=== PATIENT | male | born 1940 | race Two or more races ===

== ENCOUNTER 2017-01-26 17:52 | Inpatient (IN) | payer OTHER ==
[2017-01-26] MEDS ORDERED: SODIUM CHLORIDE 1,000 ML IV STA (18:09)
--- NOTE | 2017-01-26 18:10 | PDOC ---
History of Present Illness - General Chief Complaint: Syncope/Near Syncope Stated Complaint: WEAKNESS,FALL,SYNCOPE Time Seen by Provider: 01/26/17 18:06 - History of Present Illness Initial Comments: 01/26/17 18:23 76 y/o M with a significant PMHx of HTN, HLD, DM, CVA presents to the ED with family after a syncopal episode today. Per granddaughter, this afternoon she found the pt clutching onto a chair and breathing heavily. He then became unresponsive and fell to the floor. Granddaughter states that the patient lost consciousness for a few seconds before waking. Pt's daughter was called at this time and came home from work to check on the patient, who seemed dazed and disoriented. Daughter tried to help the patient sit on a chair, but he missed and fell again onto his buttocks. He did not lose consciousness at this time. On arrival to ER, patient has no recollection of syncopal episode or events leading up to it. He states that he feels well, but reports that he had some indigestion earlier today. He reports no chest pain, SOB, dizziness, headaches, nausea, vomiting, diarrhea. Denies numbness, tingling, or weakness in his extremities. Daughter now states that pt appears to have returned to baseline mentation. Denies ever seeing any facial droop or slurred speech today. Past History - Past Medical History Allergies/Adverse Reactions: Allergies Allergy/AdvReac Type Severity Reaction Status Date / Time No Known Allergies Allergy Verified 01/26/17 17:54 Home Medications: Ambulatory Orders Donepezil HCl [Aricept] 10 mg PO HS 02/06/16 Metformin HCl [Glucophage -] 1,000 mg PO BID 02/06/16 Simvastatin [Zocor -] 40 mg PO HS 02/06/16 Finasteride 5 mg PO DAILY 01/26/17 Omeprazole 20 mg PO DAILY 01/26/17 Tamsulosin HCl [Flomax -] 0.4 mg PO DAILY 01/26/17 Atorvastatin Ca [Lipitor] 20 mg PO HS tablet 01/28/17 Dipyridamole [Persantine -] 75 mg PO DAILY tablet 01/28/17 Donepezil HCl [Aricept -] 10 mg PO HS tablet 01/28/17 Finasteride [Proscar -] 5 mg PO DAILY tablet 01/28/17 Metformin HCl [Glucophage -] 500 mg PO BID@0700,1630 tablet 01/28/17 CVA: Yes Dementia: Yes Diabetes: Yes HTN: Yes Hypercholesterolemia: Yes - Suicide/Smoking/Psychosocial Hx Smoking History: Never smoked Have you smoked in the past 12 months: No Number of Cigarettes Smoked Daily: 0 Hx Alcohol Use: No Drug/Substance Use Hx: No Substance Use Type: None Hx Substance Use Treatment: No Review of Systems - Review of Systems Comments:: 01/26/17 18:25 "GENERAL/CONSTITUTIONAL: No fever or chills. No weakness. HEAD, EYES, EARS, NOSE AND THROAT: No change in vision. No ear pain or discharge. No sore throat. CARDIOVASCULAR: No chest pain or shortness of breath. RESPIRATORY: No cough, wheezing, or hemoptysis. GASTROINTESTINAL: (+) abdominal pain. No nausea, vomiting, diarrhea or constipation. GENITOURINARY: No dysuria, frequency, or change in urination. MUSCULOSKELETAL: No joint or muscle swelling or pain. No neck or back pain. SKIN: No rash NEUROLOGIC: (+) syncope, confusion, dizziness, LOC. No headache. ENDOCRINE: No increased thirst. No abnormal weight change. HEMATOLOGIC/LYMPHATIC: No anemia, easy bleeding, or history of blood clots. ALLERGIC/IMMUNOLOGIC: No hives or skin allergy." *Physical Exam - Vital Signs Last Vital Signs Temp Pulse Resp BP Pulse Ox 98.0 F 69 18 116/64 98 01/28/17 06:00 01/28/17 06:15 01/28/17 08:21 01/28/17 06:15 01/28/17 08:21 - Physical Exam Comments: 01/26/17 18:27 "GENERAL: Awake, alert, and fully oriented, in no acute distress HEAD: No signs of trauma EYES: PERRLA, EOMI, sclera anicteric, conjunctiva clear ENT: Auricles normal inspection, hearing grossly normal, nares patent, oropharynx clear without exudates. Moist mucosa NECK: Nontender, no stepoffs, Normal ROM, supple, no lymphadenopathy, JVD, or masses LUNGS: Breath sounds equal, clear to auscultation bilaterally. No wheezes, and no crackles HEART: Regular rate and rhythm, normal S1 and S2, no murmurs, rubs or gallops ABDOMEN: Mild periumbilical tenderness without rebound/guarding, hyperactive bowel sounds. No masses EXTREMITIES: Normal range of motion, no edema. No clubbing or cyanosis. No cords, erythema, or tenderness NEUROLOGICAL: Cranial nerves II through XII intact. 5/5 strength and sensation in all extremities, Normal speech, normal gait, normal cerebellar function tests , normal visual peguero SKIN: Warm, Dry, normal turgor, no rashes or lesions noted. " Heart Score/ECG Review - History History: Slightly suspicious - Electrocardiogram EKG: Normal - Age Age: >/= 65 - Risk Factors Risk Factors Heart Score: Yes Hx Hypercholesterolemia, Yes Hx Hypertension, Yes Hx Diabetes Based on the list above the patient has:: >/=3 risk factors or Hx atherosclerotic disease - Troponin Troponin: </= normal limit - Score Heart Score - Total: 4 - ECG Impressions Comment:: 01/26/17 18:31 NSR, no MICHAEL/STDs, no TWIs, intervals wnl, axis wnl ED Treatment Course - LABORATORY CBC & Chemistry Diagram: 01/28/17 07:00 01/28/17 07:00 - ADDITIONAL ORDERS Additional order review: 01/26/17 18:05 RBC 4.31 MCV 79.8 L MCHC 33.2 RDW 12.6 MPV 7.5 Neutrophils % 68.4 Lymphocytes % 26.5 Monocytes % 4.9 Eosinophils % 0.1 D Basophils % 0.1 - RADIOLOGY Radiology Studies Ordered: Category Date Time Status HEAD CT WITHOUT CONTRAST [CT] Stat CT Scan 01/26/17 18:07 Completed CHEST X-RAY PORTABLE* [RAD] Stat Radiology 01/26/17 18:06 Completed - Medications Given in the ED: ED Medications Discontinued Medications Generic Name Dose Route Start Last Admin Trade Name Freq PRN Reason Stop Dose Admin Atorvastatin Calcium 20 mg 01/27/17 22:00 01/27/17 21:53 Lipitor - PO 20 mg HS EDWIN Administration Dipyridamole 75 mg 01/27/17 10:00 01/28/17 10:50 Persantine - PO 75 mg DAILY EDWIN Administration Donepezil HCl 10 mg 01/27/17 22:00 01/27/17 21:53 Aricept - PO 10 mg HS EDWIN Administration Finasteride 5 mg 01/27/17 10:00 01/28/17 10:50 Proscar - PO 5 mg DAILY EDWIN Administration Heparin Sodium (Porcine) 5,000 unit 01/27/17 06:00 01/28/17 06:48 Heparin - SQ 5,000 unit TID EDWIN Administration Sodium Chloride 1,000 mls @ 1,000 mls/hr 01/26/17 18:09 01/26/17 18:05 Normal Saline - IV 01/26/17 19:08 1,000 mls/hr ASDIR STA Administration Ceftriaxone Sodium 1 gm/ 50 mls @ 100 mls/hr 01/26/17 21:45 01/26/17 22:10 Dextrose IVPB 01/26/17 22:14 100 mls/hr ONCE ONE Administration Sodium Chloride 1,000 mls @ 75 mls/hr 01/26/17 22:45 01/27/17 06:44 Normal Saline - IV 75 mls/hr ASDIR EDWIN Administration Sodium Chloride 1,000 mls @ 100 mls/hr 01/27/17 09:45 01/27/17 09:45 Normal Saline - IV 100 mls/hr ASDIR EDWIN Administration Ceftriaxone Sodium 1 gm/ 50 mls @ 100 mls/hr 01/27/17 10:00 01/27/17 10:00 Dextrose IVPB 100 mls/hr DAILY EDWIN Administration Pantoprazole Sodium 20 mg 01/27/17 10:00 01/28/17 10:50 Protonix - PO 20 mg DAILY EDWIN Administration Medical Decision Making - Medical Decision Making 01/26/17 18:10 76 M with h/o DM, HTN, HLD, CVA presents to ER with syncopal episode. Possibly orthostatic given abnormal orthostatic vitals in ER (systolic dropped from 100 lying down to 60 standing). However, will need to evaluate for cardiac syncope as well given report of dyspnea witnessed by granddaughter prior to syncopal event. ACS unlikely given non-ischemic EKG. PE is also less likely as pt adamantly denies CP/SOB at this time and is not hypoxic or tachycardic. Will evaluate for infectious process with CXR and UA. Pt also with complaint of abdominal discomfort with some periumbilical tenderness. Will r/o acute abdominal process with CTAP. - Labs, trop - CXR, UA - CTH for fall while on aspirin - CT abd/pelvis - IVF for orthostatic hypotension - Likely admit to tele for syncope 01/26/17 19:00 Pt signed out to Dr. Scales at 7PM, pending bloodwork, urine, X-ray, and CT scans. Case discussed in detail with oncoming Emergency Physician including history, physical exam and ancillary studies. Oncoming Emergency Physician has assumed care for the patient and will complete the evaluation and treatment. Patient is aware of the plan. *DC/Admit/Observation/Transfer Diagnosis at time of Disposition: Syncope Pneumonia Qualifiers: Pneumonia type: due to unspecified organism Laterality: left Lung location: upper lobe of lung Qualified Code(s): J18.1 - Lobar pneumonia, unspecified organism - Discharge Dispostion Disposition: HOME Condition at time of disposition: Good - Attestations Physician Attestion: 01/29/17 09:30 I, Dr. Lai Crook MD, attest that this document has been prepared under my direction and personally reviewed by me in its entirety. I further attest, that it accurately reflects all work, treatment, procedures and medical decision -making performed by me.
[2017-01-26 18:51] LABS: BASOPHIL 0.1 % (0-2.0); EOSINOPHIL 0.1 % (0-4.5); MCH 26.5 pg (25.7-33.7); MCHC 33.2 g/dl (32.0-35.9); MEAN CELL VOLUME 79.8 fl (80-96); MEAN PLT VOLUME 7.5 fl (7.5-11.1); NEUTROPHILS 68.4 % (42.8-82.8); PLATELET COUNT 234 K/MM3 (134-434); RDW 12.6 % (11.9-15.9); WHITE BLOOD COUNT 4.8 K/mm3 (4.0-10.8)
[2017-01-26 18:54] LABS: ACTIVATED PTT 27.6 SECONDS (24.0-38.9)
[2017-01-26 18:57] LABS: MAGNESIUM 1.8 mg/dL (1.8-2.4)
[2017-01-26 18:59] LABS: INR 1.06 (0.82-1.09); PROTHROMBIN TIME (PATIENT) 11.9 SEC (10.2-13.0)
[2017-01-26 18:59] LABS: ALBUMIN 4.2 g/dl (3.5-5.0); ALK PHOS 40 U/L (32-92); ANION GAP 8 (8-16); BILIRUBIN,TOTAL 0.8 mg/dl (0.2-1.0); CALCIUM 8.9 mg/dl (8.4-10.2); CO2 19 mmol/L (22-28); CPK 92 IU/L (39-308); CREATININE 2.1 mg/dl (0.6-1.3); GLUCOSE,RANDOM 122 mg/dl (74-106); PHOSPHOROUS 4.4 mg/dl (2.5-4.6); SGOT/AST 21 U/L (10-42); SGPT/ALT 11 U/L (10-40); TOT PROT 7.3 g/dl (6.4-8.3)
[2017-01-26 19:07] LABS: TROPONIN I (DFP) < 0.03 ng/ml (0.03-0.50)
--- NOTE | 2017-01-26 19:12 | PDOC ---
*Physical Exam - Vital Signs Last Vital Signs Temp Pulse Resp BP Pulse Ox 97.5 F L 79 16 102/57 100 01/26/17 17:53 01/26/17 18:38 01/26/17 18:38 01/26/17 18:38 01/26/17 18:38 ED Treatment Course - LABORATORY CBC & Chemistry Diagram: 01/26/17 18:05 01/26/17 18:15 - ADDITIONAL ORDERS Additional order review: Laboratory Results 01/26/17 01/26/17 01/26/17 18:15 18:05 18:05 PT with INR 11.9 INR 1.06 PTT (Actin FS) 27.6 Sodium 136 Potassium 5.5 H Chloride 109 H Carbon Dioxide 19 L D Anion Gap 8 BUN 33 H D Creatinine 2.1 H D Creat Clearance w eGFR 30.70 Random Glucose 122 H Calcium 8.9 Phosphorus 4.4 D Magnesium 1.8 Total Bilirubin 0.8 D AST 21 D ALT 11 D Alkaline Phosphatase 40 D Creatine Kinase 92 Troponin I < 0.03 L Total Protein 7.3 Albumin 4.2 D Lipase 67 H 01/26/17 18:05 RBC 4.31 MCV 79.8 L MCHC 33.2 RDW 12.6 MPV 7.5 Neutrophils % 68.4 Lymphocytes % 26.5 Monocytes % 4.9 Eosinophils % 0.1 D Basophils % 0.1 - Medications Given in the ED: ED Medications Discontinued Medications Generic Name Dose Route Start Last Admin Trade Name Freq PRN Reason Stop Dose Admin Sodium Chloride 1,000 mls @ 1,000 mls/hr 01/26/17 18:09 01/26/17 18:05 Normal Saline - IV 01/26/17 19:08 1,000 mls/hr ASDIR STA Administration Progress Note - Progress Note Progress Note: Care of this patient was transferred to id from Dr. crum at 1900 hrs. Patient had a syncopal event prior to coming in and is orthostatic here in the emergency room. Patient has a workup pending and is receiving IV fluids. Patient will be admitted to an inpatient bed for syncope once his workup is complete. 19:20 On review of the blood work is back so far patient does not have a white count or left shift he has some mild anemia. Patient has some hyperkalemia with potassium of 5.5 as well as some renal insufficiency with a creatinine of 2.1. Patient also has an elevated lipase. On reevaluation and reexamination patient does have some mild lower abdominal pain on deep palpation, there is no pulsatile mass on palpation. Patient has a CT of his head and abdomen pending. CT of the head showed no acute pathology CT abdomen and pelvis no acute pathology Chest x-ray shows a patchy left upper lobe infiltrate Patient given ceftriaxone and will be admitted to a inpatient bed *DC/Admit/Observation/Transfer Diagnosis at time of Disposition: Syncope Pneumonia Qualifiers: Pneumonia type: due to unspecified organism Laterality: left Lung location: upper lobe of lung Qualified Code(s): J18.1 - Lobar pneumonia, unspecified organism; J18.1 - Lobar pneumonia, unspecified organism; J18.1 - Lobar pneumonia , unspecified organism - Discharge Dispostion Condition at time of disposition: Fair Admit: Yes
[2017-01-26 20:02] LABS: URINE APPEARANCE Clear; URINE BILIRUBIN Negative (NEGATIVE); URINE GLUCOSE (UA) Negative (NEGATIVE); URINE KETONE Trace (NEGATIVE); URINE LEUK ESTERASE Negative (NEGATIVE); URINE NITRITE Negative (NEGATIVE); URINE UROBILINOGEN 0.2 (0.2-1.0)
[2017-01-26 20:03] LABS: URINE BLOOD 3+ (NEGATIVE); URINE COLOR YELLOW; URINE PROTEIN 2+ (NEGATIVE)
[2017-01-26 21:23] LABS: URINE HYALINE CAST 0-1 /lpf; URINE RBC 50-80 /hpf (0-3)
[2017-01-26] MEDS ORDERED: CEFTRIAXONE 1 GM in DEXTROSE 5%-WATER - 50 ML IVPB ONE (21:45)
[2017-01-26] MEDS ORDERED: cefTRIAXone SODIUM 1 GM VIAL ONE (22:06)
[2017-01-26] MEDS ORDERED: SODIUM CHLORIDE 1,000 ML IV SCH (22:45)
--- NOTE | 2017-01-26 23:56 | CONSULT ---
Consultation: REQUESTING PROVIDER: CONSULT REQUEST: We have been asked to medically evaluate this patient for ( specify). HISTORY OF PRESENT ILLNESS: REVIEW OF SYSTEMS: CONSTITUTIONAL: Absent: fever, chills, diaphoresis, generalized weakness, malaise, loss of appetite, weight change HEENT: Absent: rhinorrhea, nasal congestion, throat pain, throat swelling, difficulty swallowing, mouth swelling, ear pain, eye pain, visual changes CARDIOVASCULAR: Absent: chest pain, syncope, palpitations, irregular heart rate, lightheadedness , peripheral edema RESPIRATORY: Absent: cough, shortness of breath, dyspnea with exertion, orthopnea, wheezing, stridor, hemoptysis GASTROINTESTINAL: Absent: abdominal pain, abdominal distension, nausea, vomiting, diarrhea, constipation, melena, hematochezia GENITOURINARY: Absent: dysuria, frequency, urgency, hesitancy, hematuria, flank pain, genital pain MUSCULOSKELETAL: Absent: myalgia, arthralgia, joint swelling, back pain, neck pain SKIN: Absent: rash, itching, pallor HEMATOLOGIC/IMMUNOLOGIC: Absent: easy bleeding, easy bruising, lymphadenopathy, frequent infections ENDOCRINE: Absent: unexplained weight gain, unexplained weight loss, heat intolerance, cold intolerance NEUROLOGIC: Absent: headache, focal weakness or paresthesias, dizziness, unsteady gait, seizure, mental status changes, bladder or bowel incontinence PSYCHIATRIC: Absent: anxiety, depression, suicidal or homicidal ideation, hallucinations. PHYSICAL EXAMINATION GENERAL: Awake, alert, and fully oriented, in no acute distress. HEAD: Normal with no signs of trauma. EYES: Pupils equal, round and reactive to light, extraocular movements intact, sclera anicteric, conjunctiva clear. No lid lag. EARS, NOSE, THROAT: Ears normal, nares patent, oropharynx clear without exudates. Moist mucous membranes. NECK: Normal range of motion, supple without lymphadenopathy, JVD, or masses. LUNGS: Breath sounds equal, clear to auscultation bilaterally. No wheezes, and no crackles. No accessory muscle use. HEART: Regular rate and rhythm, normal S1 and S2 without murmur, rub or gallop. ABDOMEN: Soft, nontender, not distended, normoactive bowel sounds, no guarding, no rebound, no masses. No hepatomegaly or splenomegaly. MUSCULOSKELETAL: Normal range of motion at all joints. No bony deformities or tenderness. No CVA tenderness. UPPER EXTREMITIES: 2+ pulses, warm, well-perfused. No cyanosis. No clubbing. Cap refill <2 seconds. No peripheral edema. LOWER EXTREMITIES: 2+ pulses, warm, well-perfused. No calf tenderness. No peripheral edema. NEUROLOGICAL: Cranial nerves II-XII intact. Normal speech. Normal gait. PSYCHIATRIC: Cooperative. Good eye contact. Appropriate mood and affect. SKIN: Warm, dry, normal turgor, no rashes or lesions noted. Active Medications Generic Name Dose Route Start Last Admin Trade Name Freq PRN Reason Stop Dose Admin Heparin Sodium (Porcine) 5,000 unit 01/27/17 06:00 Heparin - SQ TID EDWIN Sodium Chloride 1,000 mls @ 75 mls/hr 01/26/17 22:45 Normal Saline - IV ASDIR [facility] ASSESSMENT/PLAN: Dispo: We will continue to follow the patient. Thank you for this consultative opportunity.
[2017-01-27 00:09] VITALS: BMI 22.4
[2017-01-27] MEDS ORDERED: ACETAMINOPHEN 325 MG TABLET (FP) PO PRN (01:07)
--- NOTE | 2017-01-27 01:14 | HP ---
Late entry: pt evaluated 01/26/17 @ 2330 CHIEF COMPLAINT: syncope PCP: Clare Fragoso, as per ED, covering physician requested symphony admit HISTORY OF PRESENT ILLNESS: This is a 76 a year old female with a significant past medical history of HTN, HLD, DM, CVA who presented s/p syncope. Per granddaughter, this afternoon she found the pt clutching onto a chair and breathing heavily. He then became unresponsive and fell to the floor. Granddaughter states that the patient lost consciousness for a few seconds before waking. Pt's daughter was called at this time and came home from work to check on the patient, who seemed dazed and disoriented. Daughter tried to help the patient sit on a chair, but he missed and fell again onto his buttocks. He did not lose consciousness that time. also reports pt has not been feeling great for the past 1-2 weeks with decreased po intake. Upon exam, pt resting quietly, no distress. Denies c/o pain anywhere. ER course was notable for: (1) orthostatic vitals (2) CXR with CLARICE infiltrate (3) CT head unremarkable Recent Travel: pt denies PAST MEDICAL HISTORY: HTN HLD DM CVA BPH PAST SURGICAL HISTORY: Left ear surgery 12 years ago prostate biopsy 2 weeks ago Social History: Smoking: pt denies Alcohol: pt denies Drugs: pt denies Family History: father age 74, no known medical problems mother , h/o DM, HTN Allergies No Known Allergies Allergy (Verified 01/26/17 17:54) HOME MEDICATIONS: 3 Medication Instructions Recorded Dipyridamole [Persantine -] 75 mg PO DAILY 02/06/16 Donepezil HCl [Aricept] 10 mg PO HS 02/06/16 Enalapril Maleate [Vasotec -] 10 mg PO DAILY 02/06/16 Glipizide [Glucotrol -] 5 mg PO DAILY 02/06/16 Metformin HCl [Glucophage -] 1,000 mg PO BID 02/06/16 Simvastatin [Zocor -] 40 mg PO HS 02/06/16 Acetaminophen [Tylenol .Regular 650 mg PO Q6H PRN #0 tablet 02/15/16 Strength -] Finasteride 5 mg PO DAILY 01/26/17 Omeprazole 20 mg PO DAILY 01/26/17 Tamsulosin HCl [Flomax] 0.4 mg PO DAILY 01/26/17 Triamcinolone 0.1% Cream 1 applic TP BID 01/26/17 [Aristocort] REVIEW OF SYSTEMS CONSTITUTIONAL: Absent: fever, chills, diaphoresis, generalized weakness, malaise, loss of appetite, weight change HEENT: Absent: rhinorrhea, nasal congestion, throat pain, throat swelling, difficulty swallowing, mouth swelling, ear pain, eye pain, visual changes CARDIOVASCULAR: Present: syncope Absent: chest pain, palpitations, irregular heart rate, lightheadedness, peripheral edema RESPIRATORY: Absent: cough, shortness of breath, dyspnea with exertion, orthopnea, wheezing, stridor, hemoptysis GASTROINTESTINAL: Absent: abdominal pain, abdominal distension, nausea, vomiting, diarrhea, constipation, melena, hematochezia GENITOURINARY: Absent: dysuria, frequency, urgency, hesitancy, hematuria, flank pain, genital pain MUSCULOSKELETAL: Absent: myalgia, arthralgia, joint swelling, back pain, neck pain SKIN: Absent: rash, itching, pallor HEMATOLOGIC/IMMUNOLOGIC: Absent: easy bleeding, easy bruising, lymphadenopathy, frequent infections ENDOCRINE: Absent: unexplained weight gain, unexplained weight loss, heat intolerance, cold intolerance NEUROLOGIC: Absent: headache, focal weakness or paresthesias, dizziness, unsteady gait, seizure, mental status changes, bladder or bowel incontinence PSYCHIATRIC: Absent: anxiety, depression, suicidal or homicidal ideation, hallucinations. PHYSICAL EXAMINATION Vital Signs - 24 hr 3 01/26/17 01/26/17 01/26/17 17:53 18:00 18:03 Temperature 97.5 F L Pulse Rate 86 Pulse Rate [ 105 H 101 H Left Radial] Respiratory 16 15 15 Rate Blood Pressure 109/57 Blood Pressure 65/34 87/46 [Right Arm] standing sitting O2 Sat by Pulse 97 99 99 Oximetry (%) 3 01/26/17 01/26/17 01/26/17 18:15 18:38 19:15 Temperature Pulse Rate Pulse Rate [ 82 79 77 Left Radial] Respiratory 15 16 15 Rate Blood Pressure Blood Pressure 102/59 102/57 115/66 [Right Arm] supine O2 Sat by Pulse 99 100 98 Oximetry (%) 3 01/26/17 01/26/17 01/27/17 20:43 21:00 00:05 Temperature 99.5 F Pulse Rate 74 Pulse Rate [ 79 69 Left Radial] Respiratory 15 18 Rate Blood Pressure 105/56 Blood Pressure 119/65 84/56 [Right Arm] standing O2 Sat by Pulse 100 98 97 Oximetry (%) GENERAL: Awake, alert, and fully oriented, in no acute distress. HEAD: Normal with no signs of trauma. EYES: Pupils equal, round and reactive to light, extraocular movements intact, sclera anicteric, conjunctiva clear. No lid lag. EARS, NOSE, THROAT: Ears normal, nares patent, oropharynx clear without exudates. Moist mucous membranes. NECK: Normal range of motion, supple without lymphadenopathy, JVD, or masses. LUNGS: Breath sounds equal, clear to auscultation bilaterally. No wheezes, and no crackles. No accessory muscle use. HEART: Regular rate and rhythm, normal S1 and S2 without murmur, rub or gallop. ABDOMEN: Soft, nontender, not distended, normoactive bowel sounds, no guarding, no rebound, no masses. No hepatomegaly or splenomegaly. MUSCULOSKELETAL: Normal range of motion at all joints. No bony deformities or tenderness. No CVA tenderness. UPPER EXTREMITIES: 2+ pulses, warm, well-perfused. No cyanosis. No clubbing. No peripheral edema. LOWER EXTREMITIES: 2+ pulses, warm, well-perfused. No calf tenderness. No peripheral edema. NEUROLOGICAL: Cranial nerves II-XII intact. Normal speech. Normal gait. PSYCHIATRIC: Cooperative. Good eye contact. Appropriate mood and affect. SKIN: Warm, dry, normal turgor, no rashes or lesions noted, normal capillary refill. Laboratory Results - last 24 hr 3 01/26/17 01/26/17 01/26/17 18:05 18:05 18:05 WBC 4.8 RBC 4.31 Hgb 11.4 L Hct 34.4 L MCV 79.8 L MCH 26.5 MCHC 33.2 RDW 12.6 Plt Count 234 MPV 7.5 Neutrophils % 68.4 Lymphocytes % 26.5 Monocytes % 4.9 Eosinophils % 0.1 D Basophils % 0.1 PT with INR 11.9 INR 1.06 PTT (Actin FS) 27.6 Sodium Potassium Chloride Carbon Dioxide Anion Gap BUN Creatinine Creat Clearance w eGFR Random Glucose Lactic Acid Calcium Phosphorus Magnesium 1.8 Total Bilirubin AST ALT Alkaline Phosphatase Creatine Kinase Troponin I B-Natriuretic Peptide 224.25 Total Protein Albumin Lipase Urine Color Urine Appearance Urine pH Ur Specific Sargent Urine Protein Urine Glucose (UA) Urine Ketones Urine Blood Urine Nitrite Urine Bilirubin Urine Urobilinogen Ur Leukocyte Esterase Urine RBC Urine WBC Ur Epithelial Cells Urine Casts Hyaline Casts Blood Type Antibody Screen Spec Expiration Date 3 01/26/17 01/26/17 01/26/17 01/26/17 18:05 18:15 18:15 19:00 WBC RBC Hgb Hct MCV MCH MCHC RDW Plt Count MPV Neutrophils % Lymphocytes % Monocytes % Eosinophils % Basophils % PT with INR INR PTT (Actin FS) Sodium 136 Potassium 5.5 H Chloride 109 H Carbon Dioxide 19 L D Anion Gap 8 BUN 33 H D Creatinine 2.1 H D Creat Clearance w eGFR 30.70 Random Glucose 122 H Lactic Acid 2.0 Calcium 8.9 Phosphorus 4.4 D Magnesium Total Bilirubin 0.8 D AST 21 D ALT 11 D Alkaline Phosphatase 40 D Creatine Kinase 92 Troponin I < 0.03 L B-Natriuretic Peptide Total Protein 7.3 Albumin 4.2 D Lipase 67 H Urine Color Urine Appearance Urine pH Ur Specific Sargent Urine Protein Urine Glucose (UA) Urine Ketones Urine Blood Urine Nitrite Urine Bilirubin Urine Urobilinogen Ur Leukocyte Esterase Urine RBC Urine WBC Ur Epithelial Cells Urine Casts Hyaline Casts Blood Type Cancelled A POSITIVE Antibody Screen Cancelled Negative Spec Expiration Date Cancelled 3 Urine Color Yellow 01/26/17 19:50 Urine Appearance Clear 01/26/17 19:50 Urine pH 5.0 (4.5-8) 01/26/17 19:50 Ur Specific Sargent 1.015 (1.005-1.025) 01/26/17 19:50 Urine Protein 2+ (NEGATIVE) H 01/26/17 19:50 Urine Glucose (UA) Negative (NEGATIVE) 01/26/17 19:50 Urine Ketones Trace (NEGATIVE) 01/26/17 19:50 Urine Blood 3+ (NEGATIVE) H 01/26/17 19:50 Urine Nitrite Negative (NEGATIVE) 01/26/17 19:50 Urine Bilirubin Negative (NEGATIVE) 01/26/17 19:50 Ur Leukocyte Esterase Negative (NEGATIVE) 01/26/17 19:50 Urine RBC 50-80 /hpf (0-3) 01/26/17 19:50 Urine WBC 3-5 (3-5) 01/26/17 19:50 Ur Epithelial Cells 0-3 /HPF 01/26/17 19:50 ECG NSR, vent rate 85, QTC 454 Normal sinus rhythm Radiology Reports CT/HEAD CT WITHOUT CONTRAST HISTORY PROVIDED: Syncope TECHNIQUE: Sequential axial images were obtained from the base of the skull to the vertex. There is no evidence of acute intracranial hemorrhage, mass lesions or infarctions. There is a moderate degree of diffuse cerebral atrophy with sulcal widening and ventricular dilatation. Hypodense changes are noted throughout the periventricular white matter consistent with chronic, small vessel ischemia. There is no evidence of fracture or acute bony abnormalities. IMPRESSION: No evidence of acute intracranial pathology. Reported By: Clement Uriostegui MD 2024 CT/ABDOMEN PELVIS CT W/O CONTR HISTORY PROVIDED: Abdominal pain TECHNIQUE: Sequential axial images were obtained from the domes of the diaphragm through the symphysis pubis. The study is markedly limited without the use of any contrast material. The lung peguero are clear. There is a large hernia in the retrocardiac space. The liver, spleen, pancreas, adrenal glands and kidneys demonstrate no significant abnormalities. There is no evidence of intra-abdominal or retroperitoneal lymphadenopathy or fluid collections. There is no evidence of pneumoperitoneum, bowel obstruction or intra-abdominal abscess. There is no CT evidence of acute appendicitis or diverticulitis. Examination of the pelvis demonstrates no evidence of pelvic masses, fluid collections or lymphadenopathy. The prostate gland is enlarged measuring 5.5 x 4.8 x 5.3 cm. There is no evidence of acute bony pathology. I MPRESSION: Limited study with no evidence of acute pathology within the abdomen or pelvis. Reported By: Clement Uriostegui MD 01/26/172037 ASSESSMENT/PLAN: 76yM with PMH HTN, HLD, DM, BPH, CVA presented to the ED s/p syncope. Syncope - with orthostatic vital signs - ECG WNL - monitor on tele - trop neg x 1, trend x 2 more - CT head without acute changes Acute kidney injury - likely due to hypovolemia - gentle IV hydration, 75cc/hr CLARICE infiltrate on xray - treated with 1g ceftriaxone in ED - pt with no cough, fever or WBC, will obtain CT chest to confirm PNA DM - hold po DM meds - BGM with novolog sliding scale HTN - given orthostatic hypotension, will hold enalapril BPH - given orthostatic hypotension, will hold tamsulosin h/o CVA - cont statin, dipyridamole DVT PPX - heparin 5000u TID FEN - NS @ 75c/chr - BMP in am - diabetic, sodium controlled diet as tolerated. Dispo: given his orthostatic vital signs he is currently medically unstable and thus requires inpatient management of his emergent conditions. Visit type - Emergency Visit Emergency Visit: Yes ED Registration Date: 01/26/17 Care time: The patient presented to the Emergency Department on the above date and was hospitalized for further evaluation of their emergent condition. - New Patient This patient is new to me today: Yes Date on this admission: 01/26/17 - Critical Care Critical Care patient: No
[2017-01-27 01:57] LABS: CPK 79 IU/L (39-308)
[2017-01-27 01:59] LABS: TROPONIN I (DFP) < 0.03 ng/ml (0.03-0.50)
[2017-01-27] MEDS: HEPARIN NA (PORCINE) 5,000 UNITS/ML 1ML VIAL SQ SCH ×3 (06:43→21:53)
--- NOTE | 2017-01-27 07:40 | PN ---
Physical Exam: SUBJECTIVE: Patient seen and examined in AM OBJECTIVE: Vital Signs Period Temp Pulse Resp BP Sys/Pizano Pulse Ox Last 24 Hr 98.2 F-99.5 F 71-95 18-19 89-118/55-67 96-98 GENERAL: The patient is awake, alert, and fully oriented,to place HEAD: Normal with no signs of trauma. LUNGS: Breath sounds equal, clear to auscultation bilaterally, no wheezes, no crackles, no accessory muscle use. HEART: Regular rate and rhythm, S1, S2 without murmur, rub or gallop. ABDOMEN: Soft, nontender, nondistended, normoactive bowel sounds, no guarding, no rebound, no hepatosplenomegaly, no masses. EXTREMITIES: 2+ pulses, warm, well-perfused, no edema. NEUROLOGICAL: Cranial nerves II through XII grossly intact. Normal speech, gait not observed. PSYCH: Normal mood, normal affect. SKIN: Warm, dry, normal turgor for pt age, no rashes or lesions noted Laboratory Results - last 24 hr 01/27/17 00:00 Creatine Kinase 79 Troponin I < 0.03 L Active Medications Generic Name Dose Route Start Last Admin Trade Name Freq PRN Reason Stop Dose Admin Acetaminophen 650 mg 01/27/17 01:07 Tylenol - PO Q6H PRN FEVER Atorvastatin Calcium 20 mg 01/27/17 22:00 Lipitor - PO HS EDWIN Dipyridamole 75 mg 01/27/17 10:00 Persantine - PO DAILY EDWIN Donepezil HCl 10 mg 01/27/17 22:00 Aricept - PO HS EDWIN Finasteride 5 mg 01/27/17 10:00 Proscar - PO DAILY EDWIN Heparin Sodium (Porcine) 5,000 unit 01/27/17 06:00 01/27/17 06:43 Heparin - SQ 5,000 unit TID EDWIN Administration Sodium Chloride 1,000 mls @ 75 mls/hr 01/26/17 22:45 01/27/17 06:44 Normal Saline - IV 75 mls/hr ASDIR EDWIN Administration Pantoprazole Sodium 20 mg 01/27/17 10:00 Protonix - PO DAILY EDWIN ASSESSMENT/PLAN: 76yM with PMH HTN, HLD, DM, BPH, CVA presented to the ED s/p syncope. Syncope - with orthostatic vital signs - ECG WNL - monitor on tele - trops neg - CT head without acute changes Acute kidney injury - likely due to hypovolemia - gentle IV hydration, 100cc/hr continue CLARICE infiltrate on xray/Granuloma on Chest CT - treated with 1g ceftriaxone in ED - started on Rocephin and Azithromax for now - Dr. Taylor Consult called for granuloma involvement DM - hold po DM meds - BGM with novolog sliding scale HTN - given orthostatic hypotension, will hold enalapril BPH - given orthostatic hypotension, will hold tamsulosin h/o CVA - cont statin, dipyridamole DVT PPX - heparin 5000u TID FEN - NS @ 100c/chr - Labs in AM - diabetic, sodium controlled diet as tolerated. Dispo: Pt is showing improvement but will require further evaluation and treatment inpatient for IV hydration, b/p monitoring. Spoke with and nephew in great length regarding pt findings, treatment and plan of care for now. Pt was sitting up and eating lunch well. Visit type - Emergency Visit Emergency Visit: Yes ED Registration Date: 01/26/17 Care time: The patient presented to the Emergency Department on the above date and was hospitalized for further evaluation of their emergent condition. - New Patient This patient is new to me today: Yes Date on this admission: 01/27/17 - Critical Care Critical Care patient: No - Discharge Referral Referred to [facility] Med P.C.: No
[2017-01-27 07:49] LABS: BASOPHIL 0.6 % (0-2.0); EOSINOPHIL 0.4 % (0-4.5); MCH 26.4 pg (25.7-33.7); MCHC 32.8 g/dl (32.0-35.9); MEAN CELL VOLUME 80.4 fl (80-96); MEAN PLT VOLUME 7.1 fl (7.5-11.1); NEUTROPHILS 42.6 % (42.8-82.8); PLATELET COUNT 192 K/MM3 (134-434); RDW 12.7 % (11.9-15.9); WHITE BLOOD COUNT 3.3 K/mm3 (4.0-10.8)
[2017-01-27 08:38] LABS: ANION GAP 7 (8-16); CALCIUM 8.2 mg/dl (8.4-10.2); CO2 18 mmol/L (22-28); CPK 75 IU/L (39-308); CREATININE 1.7 mg/dl (0.6-1.3); GLUCOSE,RANDOM 99 mg/dl (74-106); MAGNESIUM 1.9 mg/dL (1.8-2.4); PHOSPHOROUS 4.1 mg/dl (2.5-4.6)
[2017-01-27] MEDS ORDERED: PT OWN MED DRAWER 7, Y5N ONE (09:08)
[2017-01-27 09:22] LABS: TROPONIN I (DFP) < 0.03 ng/ml (0.03-0.50)
[2017-01-27] MEDS ORDERED: AZITHROMYCIN IVPB 500 MG in DEXTROSE 5%-WATER - 250 ML IVPB ONE (09:38)
[2017-01-27] MEDS: DIPYRIDAMOLE 75 MG TABLET PO SCH (09:40)
[2017-01-27] MEDS: PANTOPRAZOLE 20 MG TABLET (FP) PO SCH (09:40)
[2017-01-27] MEDS: FINASTERIDE 5 MG TABLET (FP) PO SCH (09:40)
[2017-01-27] MEDS ORDERED: SODIUM CHLORIDE 1,000 ML IV SCH (09:45)
[2017-01-27] MEDS ORDERED: CEFTRIAXONE 1 GM in DEXTROSE 5%-WATER - 50 ML IVPB SCH (10:00)
[2017-01-27] MEDS ORDERED: AZITHROMYCIN IVPB 500 MG in DEXTROSE 5%-WATER - 250 ML IVPB STA (10:06)
[2017-01-27] MEDS ORDERED: ATORVASTATIN CA 20 MG TABLET (FP) PO SCH (22:00)
[2017-01-27] MEDS ORDERED: DONEPEZIL HCL 10 MG TABLET (FP) PO SCH (22:00)
[2017-01-28 06:17] VITALS: BP 116/64; PULSE 69
[2017-01-28 06:20] VITALS: TEMP 98
[2017-01-28] MEDS: HEPARIN NA (PORCINE) 5,000 UNITS/ML 1ML VIAL SQ SCH (06:48)
--- NOTE | 2017-01-28 07:23 | PN ---
Physical Exam: SUBJECTIVE: Patient seen and examined OBJECTIVE: Vital Signs Period Temp Pulse Resp BP Sys/Pizano Pulse Ox Last 24 Hr 98.0 F-98.7 F 57-91 18-18 100-118/54-74 96-99 GENERAL: The patient is awake, alert, and fully oriented, in no acute distress. HEAD: Normal with no signs of trauma. EYES: PERRL, extraocular movements intact, sclera anicteric, conjunctiva clear. No ptosis. ENT: Ears normal, nares patent, oropharynx clear without exudates, moist mucous membranes. NECK: Trachea midline, full range of motion, supple. LUNGS: Breath sounds equal, clear to auscultation bilaterally, no wheezes, no crackles, no accessory muscle use. HEART: Regular rate and rhythm, S1, S2 without murmur, rub or gallop. ABDOMEN: Soft, nontender, nondistended, normoactive bowel sounds, no guarding, no rebound, no hepatosplenomegaly, no masses. EXTREMITIES: 2+ pulses, warm, well-perfused, no edema. NEUROLOGICAL: Cranial nerves II through XII grossly intact. Normal speech, gait not observed. PSYCH: Normal mood, normal affect. SKIN: Warm, dry, normal turgor, no rashes or lesions noted Laboratory Results - last 24 hr 01/27/17 01/27/17 07:40 07:40 WBC 3.3 L D RBC 3.88 L Hgb 10.2 L D Hct 31.2 L MCV 80.4 MCH 26.4 MCHC 32.8 RDW 12.7 Plt Count 192 MPV 7.1 L Neutrophils % 42.6 L D Lymphocytes % 44.3 H D Monocytes % 12.1 H D Eosinophils % 0.4 D Basophils % 0.6 D Sodium 137 Potassium 5.1 Chloride 112 H Carbon Dioxide 18 L Anion Gap 7 L BUN 34 H Creatinine 1.7 H Random Glucose 99 Calcium 8.2 L Phosphorus 4.1 Magnesium 1.9 Creatine Kinase 75 Troponin I < 0.03 L Active Medications Generic Name Dose Route Start Last Admin Trade Name Freq PRN Reason Stop Dose Admin Acetaminophen 650 mg 01/27/17 01:07 Tylenol - PO Q6H PRN FEVER Atorvastatin Calcium 20 mg 01/27/17 22:00 01/27/17 21:53 Lipitor - PO 20 mg HS EDWIN Administration Dipyridamole 75 mg 01/27/17 10:00 01/27/17 09:40 Persantine - PO 75 mg DAILY EDWIN Administration Donepezil HCl 10 mg 01/27/17 22:00 01/27/17 21:53 Aricept - PO 10 mg HS EDWIN Administration Finasteride 5 mg 01/27/17 10:00 01/27/17 09:40 Proscar - PO 5 mg DAILY EDWIN Administration Heparin Sodium (Porcine) 5,000 unit 01/27/17 06:00 01/28/17 06:48 Heparin - SQ 5,000 unit TID EDWIN Administration Sodium Chloride 1,000 mls @ 100 mls/hr 01/27/17 09:45 01/27/17 09:45 Normal Saline - IV 100 mls/hr ASDIR EDWIN Administration Azithromycin 250 mg/ Dextrose 250 mls @ 250 mls/hr 01/28/17 10:00 IVPB 01/31/17 10:00 DAILY EDWIN Ceftriaxone Sodium 1 gm/ 50 mls @ 100 mls/hr 01/27/17 10:00 01/27/17 10:00 Dextrose IVPB 100 mls/hr DAILY EDWIN Administration Pantoprazole Sodium 20 mg 01/27/17 10:00 01/27/17 09:40 Protonix - PO 20 mg DAILY EDWIN Administration ASSESSMENT/PLAN: 76yM with PMH HTN, HLD, DM, BPH, CVA presented to the ED s/p syncope. Syncope - with orthostatic vital signs - ECG WNL - monitor on tele - trops neg - CT head without acute changes Acute kidney injury now resolved - likely due to hypovolemia - gentle IV hydration, 100cc/hr completed CLARICE infiltrate on xray/Granuloma on Chest CT - Dr. Taylor Consult called for granuloma involvement, will see pt this AM or OP in office DM - hold po DM meds - BGM with novolog sliding scale HTN - given orthostatic hypotension, will hold enalapril BPH - flomax h/o CVA - cont statin, dipyridamole DVT PPX - heparin 5000u TID FEN - NS @ 100c/chr completed - Labs in AM - diabetic, sodium controlled diet as tolerated. Dispo: Pt is showing improvement but will require further evaluation and treatment inpatient for IV hydration, b/p monitoring. Spoke with and nephew in great length regarding pt findings, treatment and plan of care for now. Pt was sitting up and eating lunch well. Visit type - Emergency Visit Emergency Visit: Yes ED Registration Date: 01/26/17 Care time: The patient presented to the Emergency Department on the above date and was hospitalized for further evaluation of their emergent condition. - New Patient This patient is new to me today: No - Critical Care Critical Care patient: No - Discharge Referral Referred to [facility] Med P.C.: No
[2017-01-28 08:54] LABS: BASOPHIL 0.7 % (0-2.0); EOSINOPHIL 0.9 % (0-4.5); MCH 26.1 pg (25.7-33.7); MCHC 32.6 g/dl (32.0-35.9); MEAN CELL VOLUME 80.1 fl (80-96); MEAN PLT VOLUME 7.7 fl (7.5-11.1); NEUTROPHILS 27.5 % (42.8-82.8); PLATELET COUNT 162 K/MM3 (134-434); RDW 12.6 % (11.9-15.9); WHITE BLOOD COUNT 2.9 K/mm3 (4.0-10.8)
[2017-01-28] MEDS ORDERED: PT OWN MED DRAWER 7, Y5N ONE (09:54)
[2017-01-28] MEDS ORDERED: AZITHROMYCIN IVPB 250 MG in DEXTROSE 5%-WATER - 250 ML IVPB SCH (10:00)
[2017-01-28 10:19] LABS: ALBUMIN 3.3 g/dl (3.5-5.0); ALK PHOS 31 U/L (32-92); ANION GAP 6 (8-16); BILIRUBIN,TOTAL 0.7 mg/dl (0.2-1.0); CALCIUM 8.1 mg/dl (8.4-10.2); CO2 19 mmol/L (22-28); CREATININE 1.2 mg/dl (0.6-1.3); GLUCOSE,RANDOM 107 mg/dl (74-106); MAGNESIUM 1.6 mg/dL (1.8-2.4); PHOSPHOROUS 2.9 mg/dl (2.5-4.6); SGOT/AST 15 U/L (10-42); SGPT/ALT 10 U/L (10-40); TOT PROT 5.9 g/dl (6.4-8.3)
[2017-01-28 10:36] LABS: PH,URINE 5.5 (4.5-8); URINE APPEARANCE Clear; URINE BILIRUBIN Negative (NEGATIVE); URINE BLOOD 2+ (NEGATIVE); URINE COLOR YELLOW; URINE GLUCOSE (UA) Trace (NEGATIVE); URINE KETONE Negative (NEGATIVE); URINE LEUK ESTERASE Negative (NEGATIVE); URINE NITRITE Negative (NEGATIVE); URINE PROTEIN Negative (NEGATIVE); URINE UROBILINOGEN 0.2 (0.2-1.0)
[2017-01-28 10:37] LABS: URINE BACTERIA MODERATE /hpf (NEGATIVE); URINE WBC 0-3 /hpf (3-5)
[2017-01-28] MEDS: FINASTERIDE 5 MG TABLET (FP) PO SCH (10:50)
[2017-01-28] MEDS: PANTOPRAZOLE 20 MG TABLET (FP) PO SCH (10:50)
[2017-01-28] MEDS: DIPYRIDAMOLE 75 MG TABLET PO SCH (10:50)
[2017-01-28] MEDS ORDERED: metFORMIN HCL 500 MG TABLET (FP) PO SCH (11:00)
--- NOTE | 2017-01-30 10:54 | EKG ---
Test Reason : Blood Pressure : / mmHG Vent. Rate : 085 BPM Atrial Rate : 085 BPM P-R Int : 132 ms QRS Dur : 084 ms QT Int : 382 ms P-R-T Axes : 019 052 044 degrees QTc Int : 454 ms NORMAL SINUS RHYTHM NO PREVIOUS ECGS AVAILABLE Confirmed by MD MAURICIO, YVES ([id number]) on 01/30/2017 10:54:20 AM Referred By: MD DRUMMOND Confirmed By:YVES MARTÍNEZ MD
== END 2017-01-28 12:04 | disposition home or self-care (01) | DRG 682 ==
LOC: FER 17:52 → FM/S 21:53
PROVIDERS: ADMIT Internal Medicine; ATTEND Nurse Practitioner Family
DX: N17.9 Acute kidney failure, unspecified (principal); J18.1 Lobar pneumonia, unspecified organism; I10 Essential (primary) hypertension; E78.5 Hyperlipidemia, unspecified; E11.9 Type 2 diabetes mellitus without complications; F03.90 Unspecified dementia, unspecified severity, without behavioral disturbance, psychotic disturbance, mood disturbance, and anxiety; N40.0 Benign prostatic hyperplasia without lower urinary tract symptoms; E86.1 Hypovolemia; I95.1 Orthostatic hypotension; Z86.73 Personal history of transient ischemic attack (TIA), and cerebral infarction without residual deficits; Z79.84 Long term (current) use of oral hypoglycemic drugs
CPT/HCPCS: 36415; 70450-TC; 71010-TC; 71250-TC; 74176-TC; 80048; 80053; 81003; 81015; 82550; 82607; 83605; 83690; 83735; 83880; 84100; 84484; 85025; 85610; 85730; 86850; 86900; 86901; 87040; 87086; 93005; 99285-25; J1644

== ENCOUNTER 2017-04-05 21:59 | Inpatient (IN) | payer OTHER ==
--- NOTE | 2017-04-05 22:02 | PDOC ---
History of Present Illness - General Chief Complaint: Respiratory Stated Complaint: COUGH, ANOREXIA Time Seen by Provider: 04/05/17 22:02 History Source: Patient Exam Limitations: No Limitations - History of Present Illness Initial Comments: 04/05/17 22:28 This is a 76-year-old male who's brought in by his family for evaluation of fever, cough, congestion and increased weakness, loss of appetite and some confusion over the last 24-48 hours. Patient has a history significant for hypertension, high cholesterol, dementia, and diabetes. Patient denied any chest pain, was noted to have a cough in the emergency room. Patient denied any nausea vomiting or diarrhea. Patient family brought him in because he were concerned about his dizziness and loss of appetite. PAST MEDICAL HISTORY: As per history of present illness PAST SURGICAL HISTORY: no significant history FAMILY HISTORY: no pertinant history SOCIAL HISTORY: Pt lives with family and is retired MEDICATIONS: reviewed ALLERGIES: As per nursing notes Review of Systems General: + fevers or chills, no weakness, no weight loss HEENT: No change in vision. No sore throat,. No ear pain CardioVascular: No chest pain or shortness of breath Respiratory:+ cough, no wheezing. Gastrointestinal: no nausea, vomitting, diarrhea or constipation, No rectal bleeding Genitourinary: No dysuria, hematuria, or frequency Musculoskeletal: No joint or muscle pain or swelling Neurologic: No headache, vertigo, + dizziness no loss of consciousness Psychiatric: nor depression Skin: No rashes or easy bruising Endocrine: no increased thirst or abnormal weight change Allergic: no skin or latex allergy All other systems reviewed and normal Exam: General: Well-nourished well-developed individual, no acute distress HEENT: Throat: Normal, tonsils normal, no erythema or exudate Neck: Supple, no meningeal signs, no lymphadenopathy Eyes::Pupils equal reactive and round, extraocular motion intact Chest: Nontender to palpation Cardiac: S1-S2 normal, regular rate and rhythm, no murmurs rubs or gallops Respiratory: There is some decreased breath sounds on the right with a few rhonchi at the base Abdomen: Soft, nondistended, normal bowel sounds, nontender to palpation diffusely Extremities: Warm, dry, no cyanosis, clubbing, or edema Skin: No rashes Neuro: Alert and oriented x3, CN II - XII intact, nonfocal exam with normal strength, normal sensation, normal reflexes, normal gait, Psych: Normal mood and affect Medical decision making This is a 76-year-old male who was brought in by his family because they were concerned about his lack of appetite and cough/congestion. Patient is noted to have a elevated heart rate of 1:15. Will initiate sepsis protocol Labs CBC, comp, blood cultures, urine cultures, cardiac stent Will follow-up with chest x-ray and EKG Chest x-ray shows right lower lobe infiltrate, I will give him ceftriaxone and azithromycin for the pneumonia 04/05/17 22:56 Patient's rectal temp is 103. A influenza swab is ordered but will start patient on tamiflu as per the recommendation of the CDC for influenza this year Patient will need an admission for community-acquired pneumonia rule out sepsis 04/06/17 00:17 Flu swab was negative for influenza. Initial lactic acid was 2.4 Will repeat lactic acid if lactic acid is improved patient will be admitted at [place] discussed admission with the hospitalist service who has accepted the patient for admission Past History - Past Medical History Allergies/Adverse Reactions: Allergies Allergy/AdvReac Type Severity Reaction Status Date / Time No Known Allergies Allergy Verified 01/26/17 17:54 Home Medications: Ambulatory Orders Donepezil HCl [Aricept] 10 mg PO HS 02/06/16 Simvastatin [Zocor -] 40 mg PO HS 02/06/16 Omeprazole 20 mg PO DAILY 01/26/17 Tamsulosin HCl [Flomax -] 0.4 mg PO DAILY 01/26/17 Atorvastatin Ca [Lipitor] 20 mg PO HS tablet 01/28/17 Dipyridamole [Persantine -] 75 mg PO DAILY tablet 01/28/17 Finasteride [Proscar -] 5 mg PO DAILY tablet 01/28/17 Metformin HCl [Glucophage -] 500 mg PO BID@0700,1630 tablet 01/28/17 CVA: Yes Dementia: Yes Diabetes: Yes HTN: Yes Hypercholesterolemia: Yes - Suicide/Smoking/Psychosocial Hx Smoking History: Never smoked Have you smoked in the past 12 months: No Number of Cigarettes Smoked Daily: 0 Hx Alcohol Use: No Drug/Substance Use Hx: No Substance Use Type: None Hx Substance Use Treatment: No ED Treatment Course - LABORATORY CBC & Chemistry Diagram: 04/05/17 22:23 04/05/17 22:23 *DC/Admit/Observation/Transfer Diagnosis at time of Disposition: Pneumonia Qualifiers: Pneumonia type: due to unspecified organism Laterality: right Lung location: lower lobe of lung Qualified Code(s): J18.1 - Lobar pneumonia, unspecified organism - Discharge Dispostion Condition at time of disposition: Stable Admit: Yes - Referrals - Patient Instructions - Post Discharge Activity
[2017-04-05 22:08] VITALS: BMI 23.5
[2017-04-05] MEDS ORDERED: AZITHROMYCIN IVPB 500 MG in DEXTROSE 5%-WATER - 250 ML IVPB ONE (22:27)
[2017-04-05] MEDS ORDERED: CEFTRIAXONE 1 GM in DEXTROSE 5%-WATER - 100 ML IVPB ONE (22:27)
[2017-04-05] MEDS ORDERED: OSELTAMIVIR PHOSPHATE 75 MG CAPSULE PO ONE (22:28)
[2017-04-05] MEDS ORDERED: OSELTAMIVIR PHOSPHATE 75 MG CAPSULE ONE (22:32)
[2017-04-05] MEDS ORDERED: AZITHROMYCIN 500 MG VIAL IVPB ONE (22:32)
[2017-04-05] MEDS ORDERED: cefTRIAXone SODIUM 1 GM VIAL ONE (22:33)
[2017-04-05] MEDS ORDERED: ACETAMINOPHEN 1000 MG/100 ML VIAL (NON FORMULARY) IVPB ONE (22:53)
[2017-04-05] MEDS ORDERED: ACETAMINOPHEN INJECTION 100 ML IVPB ONE (22:56)
[2017-04-05 23:03] LABS: ALBUMIN 3.6 g/dl (3.5-5.0); ALK PHOS 57 U/L (32-92); ANION GAP 11 (8-16); BILIRUBIN,TOTAL 0.7 mg/dl (0.2-1.0); BLOOD UREA NITROGEN 21 mg/dl (7-18); CALCIUM 8.4 mg/dl (8.4-10.2); CHLORIDE 96 mmol/L (98-107); CO2 25 mmol/L (22-28); CREATININE 1.7 mg/dl (0.6-1.3); GLUCOSE,RANDOM 266 mg/dl (74-106); POTASSIUM 4.5 mmol/L (3.5-5.1); SGOT/AST 20 U/L (10-42); SGPT/ALT 17 U/L (10-40); SODIUM 132 mmol/L (136-145); TOT PROT 7.6 g/dl (6.4-8.3)
[2017-04-05 23:19] LABS: EOS % 0.3 % (0-4.5); HEMATOCRIT 32.5 % (35.4-49); HEMOGLOBIN 10.8 GM/dl (11.7-16.9); MCH 26.6 pg (25.7-33.7); MCHC 33.1 g/dl (32.0-35.9); MEAN CELL VOLUME 80.6 fl (80-96); MONO % 5.1 % (3.8-10.2); NEUT % 83.6 % (42.8-82.8); PLATELET COUNT 209 K/MM3 (134-434); RBC 4.04 M/mm3 (4.00-5.60); RDW 12.2 % (11.9-15.9); WHITE BLOOD COUNT 8.9 K/mm3 (4.0-10.8)
[2017-04-05 23:20] LABS: PH,URINE 5.5 (4.5-8); URINE APPEARANCE HAZY; URINE BILIRUBIN 1+ (NEGATIVE); URINE BLOOD 2+ (NEGATIVE); URINE COLOR YELLOW; URINE GLUCOSE (UA) Negative (NEGATIVE); URINE KETONE 1+ (NEGATIVE); URINE NITRITE Negative (NEGATIVE); URINE PROTEIN 3+ (NEGATIVE); URINE UROBILINOGEN 0.2 (0.2-1.0)
[2017-04-05 23:25] LABS: TROPONIN I (DFP) < 0.03 ng/ml (0.03-0.50)
[2017-04-05 23:37] LABS: EPI CELLS FEW /HPF
[2017-04-05 23:38] LABS: AMORP URATES FEW /hpf (NONE SEEN); URINE BACTERIA FEW /hpf (NEGATIVE); URINE CASTS FEW /hpf
[2017-04-06] MEDS ORDERED: ACETAMINOPHEN 325 MG TABLET (FP) PO PRN (00:02)
[2017-04-06] MEDS ORDERED: SODIUM CHLORIDE 1,000 ML IV STA (00:37)
[2017-04-06] MEDS ORDERED: INSULIN SLIDING SCALE (NOVOLOG) 1 VIAL SQ SCH (07:00)
--- NOTE | 2017-04-06 08:36 | HP ---
CHIEF COMPLAINT: fever and cough PCP: Dr De La Torre HISTORY OF PRESENT ILLNESS: Patient is a 76 y/o male with a past medical history of CVA, BPH, NIDDM, alzheimer's, and hyperlipidemia. Patient reports four days of generalized malaise with decrease appetite. Patient reports a fever within the past 24 hours and cough. As a result, he sought evaluation in the emergency department. ER course was notable for: (1) tmax 103.0 upon arrival to the emergency department (2)lactic acid 2.4 (3)chest xray bibasilar athelactasis and infilitrative chagnes. Recent Travel: none PAST MEDICAL HISTORY: see hpi PAST SURGICAL HISTORY: none Social History: retired resides at home with Smoking:denies any tobacoo use Alcohol: none Drugs: none Family History: non contributory to this admission Allergies No Known Allergies Allergy (Verified 01/26/17 17:54) HOME MEDICATIONS: Home Medications Medication Instructions Recorded Donepezil HCl [Aricept] 10 mg PO HS 02/06/16 Simvastatin [Zocor -] 40 mg PO HS 02/06/16 Omeprazole 20 mg PO DAILY 01/26/17 Tamsulosin HCl [Flomax -] 0.4 mg PO DAILY 01/26/17 Atorvastatin Ca [Lipitor] 20 mg PO HS tablet 01/28/17 Dipyridamole [Persantine -] 75 mg PO DAILY tablet 01/28/17 Finasteride [Proscar -] 5 mg PO DAILY tablet 01/28/17 Metformin HCl [Glucophage -] 500 mg PO BID@0700,1630 tablet 01/28/17 REVIEW OF SYSTEMS CONSTITUTIONAL: Present: fever, chills, generalized weakness, malaise, loss of appetite, Absent:, diaphoresis, weight change HEENT: Absent: rhinorrhea, nasal congestion, throat pain, throat swelling, difficulty swallowing, mouth swelling, ear pain, eye pain, visual changes CARDIOVASCULAR: Absent: chest pain, syncope, palpitations, irregular heart rate, lightheadedness , peripheral edema RESPIRATORY: Present: cough Absent: shortness of breath, dyspnea with exertion, orthopnea, wheezing, stridor , hemoptysis GASTROINTESTINAL: Absent: abdominal pain, abdominal distension, nausea, vomiting, diarrhea, constipation, melena, hematochezia GENITOURINARY: Absent: dysuria, frequency, urgency, hesitancy, hematuria, flank pain, genital pain MUSCULOSKELETAL: Absent: myalgia, arthralgia, joint swelling, back pain, neck pain SKIN: Absent: rash, itching, pallor HEMATOLOGIC/IMMUNOLOGIC: Absent: easy bleeding, easy bruising, lymphadenopathy, frequent infections ENDOCRINE: Absent: unexplained weight gain, unexplained weight loss, heat intolerance, cold intolerance NEUROLOGIC: Absent: headache, focal weakness or paresthesias, dizziness, unsteady gait, seizure, mental status changes, bladder or bowel incontinence PSYCHIATRIC: Absent: anxiety, depression, suicidal or homicidal ideation, hallucinations. PHYSICAL EXAMINATION Vital Signs - 24 hr 04/05/17 04/05/17 04/05/17 22:06 22:52 22:53 Temperature 98.5 F 103 F H 103 F H Pulse Rate 115 H Pulse Rate [ Radial] Respiratory 18 Rate Blood Pressure 119/78 Blood Pressure [Arm] O2 Sat by Pulse 98 Oximetry (%) 04/05/17 04/06/17 04/06/17 23:55 00:13 02:02 Temperature 98.2 F 99.1 F Pulse Rate 87 Pulse Rate [ 96 H Radial] Respiratory 20 18 18 Rate Blood Pressure 108/58 Blood Pressure 111/65 [Arm] O2 Sat by Pulse 95 95 95 Oximetry (%) 04/06/17 04/06/17 06:00 08:33 Temperature 98.1 F Pulse Rate 84 Pulse Rate [ Radial] Respiratory 18 18 Rate Blood Pressure 105/68 Blood Pressure [Arm] O2 Sat by Pulse 96 96 Oximetry (%) GENERAL: Awake, alert, and fully oriented, in no acute distress. HEAD: Normal with no signs of trauma. EYES: Pupils equal, round and reactive to light, extraocular movements intact, sclera anicteric, conjunctiva clear. No lid lag. EARS, NOSE, THROAT: Ears normal, nares patent, oropharynx clear without exudates. dry mucous membranes. NECK: Normal range of motion, supple without lymphadenopathy, JVD, or masses. LUNGS: persistent dry cough, Breath sounds equal, clear to auscultation bilaterally to apexes and diminished to base, No wheezes, and no crackles. No accessory muscle use. HEART: Regular rate and rhythm, normal S1 and S2 without murmur, rub or gallop. ABDOMEN: Soft, nontender, not distended, normoactive bowel sounds, no guarding, no rebound, no masses. No hepatomegaly or splenomegaly. MUSCULOSKELETAL: Normal range of motion at all joints. No bony deformities or tenderness. No CVA tenderness. UPPER EXTREMITIES: 2+ pulses, warm, well-perfused. No cyanosis. No clubbing. No peripheral edema. LOWER EXTREMITIES: 2+ pulses, warm, well-perfused. No calf tenderness. No peripheral edema. NEUROLOGICAL: Cranial nerves II-XII intact. Normal speech. Normal gait. PSYCHIATRIC: Cooperative. Good eye contact. Appropriate mood and affect. SKIN: Warm, dry, normal turgor, no rashes or lesions noted, normal capillary refill. Laboratory Results - last 24 hr 04/05/17 04/05/17 04/05/17 22:23 22:23 22:23 WBC 8.9 D RBC 4.04 Hgb 10.8 L D Hct 32.5 L MCV 80.6 MCH 26.6 MCHC 33.1 RDW 12.2 Plt Count 209 D MPV 8.0 Neutrophils % 83.6 H D Lymphocytes % 11.0 D Monocytes % 5.1 Eosinophils % 0.3 Basophils % 0.0 Sodium 132 L Potassium 4.5 Chloride 96 L D Carbon Dioxide 25 D Anion Gap 11 BUN 21 H Creatinine 1.7 H D Creat Clearance w eGFR 39.18 POC Glucometer Random Glucose 266 H D Lactic Acid Calcium 8.4 Total Bilirubin 0.7 AST 20 D ALT 17 D Alkaline Phosphatase 57 D Creatine Kinase 54 Troponin I < 0.03 L Total Protein 7.6 D Albumin 3.6 Urine Color Urine Appearance Urine pH Ur Specific [place] Urine Protein Urine Glucose (UA) Urine Ketones Urine Blood Urine Nitrite Urine Bilirubin Urine Urobilinogen Ur Leukocyte Esterase Urine RBC Urine WBC Ur Epithelial Cells Amorphous Urates Urine Bacteria Urine Casts Hyaline Casts 04/05/17 04/05/17 04/06/17 22:23 23:00 00:19 WBC RBC Hgb Hct MCV MCH MCHC RDW Plt Count MPV Neutrophils % Lymphocytes % Monocytes % Eosinophils % Basophils % Sodium Potassium Chloride Carbon Dioxide Anion Gap BUN Creatinine Creat Clearance w eGFR POC Glucometer Random Glucose Lactic Acid 2.4 H* 1.0 Calcium Total Bilirubin AST ALT Alkaline Phosphatase Creatine Kinase Troponin I Total Protein Albumin Urine Color Yellow Urine Appearance Hazy Urine pH 5.5 Ur Specific [place] 1.025 Urine Protein 3+ H Urine Glucose (UA) Negative Urine Ketones 1+ H Urine Blood 2+ H Urine Nitrite Negative Urine Bilirubin 1+ H Urine Urobilinogen 0.2 Ur Leukocyte Esterase Negative Urine RBC 10-20 Urine WBC 2-4 Ur Epithelial Cells Few Amorphous Urates Few Urine Bacteria Few Urine Casts Few Hyaline Casts 1-3 04/06/17 05:59 WBC RBC Hgb Hct MCV MCH MCHC RDW Plt Count MPV Neutrophils % Lymphocytes % Monocytes % Eosinophils % Basophils % Sodium Potassium Chloride Carbon Dioxide Anion Gap BUN Creatinine Creat Clearance w eGFR POC Glucometer 138 Random Glucose Lactic Acid Calcium Total Bilirubin AST ALT Alkaline Phosphatase Creatine Kinase Troponin I Total Protein Albumin Urine Color Urine Appearance Urine pH Ur Specific [place] Urine Protein Urine Glucose (UA) Urine Ketones Urine Blood Urine Nitrite Urine Bilirubin Urine Urobilinogen Ur Leukocyte Esterase Urine RBC Urine WBC Ur Epithelial Cells Amorphous Urates Urine Bacteria Urine Casts Hyaline Casts ASSESSMENT/PLAN: F/E/N - diabetic diet - replete lytes prn ppx - heparin sq - pepcid - scd dispo: patient requires inpatient admission. Problem List - Problem (1) Sepsis Assessment/Plan: - secondary to CPAP vs influenza - rapid flu is negative, however, symptoms consistent with influenza will treat with tamiflu, renal dose - lactic acidosis resolved, monitor cbc and fever curve - follow blood and urine cultures Code(s): A41.9 - SEPSIS, UNSPECIFIED ORGANISM (2) Benign prostatic hypertrophy Assessment/Plan: - continue proscar and flomax - no signs of urinary retention at this time, strict intake and output Code(s): N40.0 - BENIGN PROSTATIC HYPERPLASIA WITHOUT LOWER URINRY TRACT SYMP Qualifiers: Lower urinary tract symptom presence: presence of symptoms unspecified (3) Cerebrovascular disease Assessment/Plan: - hx of cva, continue persantine home dose Code(s): I67.9 - CEREBROVASCULAR DISEASE, UNSPECIFIED (4) Diabetes mellitus Assessment/Plan: - hold metformin, continue fingersticks achs, with regular insulin sliding scale Code(s): E11.9 - TYPE 2 DIABETES MELLITUS WITHOUT COMPLICATIONS Qualifiers: Diabetes mellitus type: type 2 (5) Hyperlipidemia Assessment/Plan: -continue lipitor, lf't's wnl Code(s): E78.5 - HYPERLIPIDEMIA, UNSPECIFIED Qualifiers: Hyperlipidemia type: pure hypercholesterolemia Qualified Code(s): E78.00 - Pure hypercholesterolemia, unspecified; E78.0 - Pure hypercholesterolemia (6) Alzheimer's dementia Assessment/Plan: - continue aricept, fall precautions Code(s): G30.9 - ALZHEIMER'S DISEASE, UNSPECIFIED (7) Pneumonia Assessment/Plan: - chest xray reviewed, repeat chest xray ordered, pa/lat - follow up urine antigens - continue zithromax and rocephin - keep spo2 above 92% with supplemental O2 Code(s): J18.9 - PNEUMONIA, UNSPECIFIED ORGANISM Qualifiers: Pneumonia type: due to unspecified organism Laterality: right Lung location: lower lobe of lung Qualified Code(s): J18.1 - Lobar pneumonia, unspecified organism (8) Acute renal failure Assessment/Plan: - creatine 1.7, baseline 1.0, pre-renal secondary to hypovolemia, gentle iv hydration, repeat creatine in the AM Code(s): N17.9 - ACUTE KIDNEY FAILURE, UNSPECIFIED
[2017-04-06] MEDS ORDERED: ALBUTEROL SO4 0.083% IH SOL 2.5 MG/3 ML VIAL.NEB. NEB PRN (08:39)
[2017-04-06 08:45] LABS: BASO % 0.1 % (0-2.0); EOS % 0.7 % (0-4.5); HEMATOCRIT 29.3 % (35.4-49); HEMOGLOBIN 9.5 GM/dl (11.7-16.9); LYMPH % 21.3 % (8-40); MCH 26.1 pg (25.7-33.7); MCHC 32.3 g/dl (32.0-35.9); MEAN CELL VOLUME 80.8 fl (80-96); MEAN PLT VOLUME 7.8 fl (7.5-11.1); MONO % 6.5 % (3.8-10.2); NEUT % 71.4 % (42.8-82.8); PLATELET COUNT 176 K/MM3 (134-434); RBC 3.63 M/mm3 (4.00-5.60); RDW 12.1 % (11.9-15.9); WHITE BLOOD COUNT 5.5 K/mm3 (4.0-10.8)
--- NOTE | 2017-04-06 08:49 | PN ---
Progress Note (short form) - Note Progress Note: ID Consult dictated 76 year old male admitted from home with several days hx cough, congestion, anorexia, generalized weakness, confusion Temp in ER 103. CXR bibasilar atelecrtasis, infiltrative changes. Flu screen negative WBC WNL Viral pneumonitis v. CAP ? Influenza ? Pertusis Lactic acidosis Await c/s Empiric zithromax/ ceftriaxone Will continue droplet precautions and Tamiflu despite negative influenza screen. (High index of suspicion and + influenza activity in the community)
[2017-04-06 08:52] LABS: ANION GAP 8 (8-16); BLOOD UREA NITROGEN 23 mg/dl (7-18); CHLORIDE 101 mmol/L (98-107); CO2 26 mmol/L (22-28); CREATININE 1.3 mg/dl (0.6-1.3); GLUCOSE,RANDOM 176 mg/dl (74-106); SODIUM 135 mmol/L (136-145)
--- NOTE | 2017-04-06 09:27 | CONS ---
DATE OF CONSULTATION: DATE OF DICTATION: 04/06/2017 HISTORY OF PRESENT ILLNESS: The patient is a 76-year-old male with a history of diabetes mellitus and mild dementia evaluated for respiratory tract infection. Patient was admitted to the hospital on April 05, 2017, with a 2-day history of cough, congestion, fever, generalized weakness, anorexia, and mild confusion as per family. He was brought to the emergency room where his temperature was 103. A rapid influenza swallow was performed and was negative. Chest x-ray showed some increased markings at the bases bilaterally. He was empirically treated with Zithromax and ceftriaxone. Patient reports dry cough, denies any ill contacts. He lives at home with his , who is well. He did receive influenza vaccine prior to admission. He denies any chest pain, purulent sputum production or hemoptysis. He is a life-long nonsmoker, denies any recent travel or pet exposure. His last hospital admission was in 2015. PAST MEDICAL HISTORY: Positive for diabetes mellitus, hypertension, hyperlipidemia, mild dementia, history of Enterobacter urosepsis secondary to a urologic procedure. ALLERGIES: No known allergies. MEDICATIONS: Include Aricept, Zocor, omeprazole, Flomax, Lipitor, Proscar, Glucophage. SOCIAL HISTORY: He lives at home with his . He is a nonsmoker. No recent travel or pet exposure. SYSTEMS REVIEW: Neurologic: Positive for mild dementia and increased confusion as per family. No loss of consciousness, seizure activity, or focal weakness. Cardiac: Negative chest pain or palpitations. Respiratory: As per HPI. Gastrointestinal: Negative for vomiting or diarrhea. Genitourinary: Negative for urinary tract infection. LABORATORY DATA: White count 8.9, 83 neutrophils, 11 lymphocytes, 5 monocytes, hematocrit 32.5, platelet count 209. BUN 21, creatinine 1.7. Liver enzymes normal. Chest x-ray shows atelectatic changes and possible bibasilar infiltrates. Urinalysis 2-4 white cells. Cultures pending. Influenza swab negative. PHYSICAL EXAMINATION: General: He is awake and alert. He is noted to have a cough. He is not acute dyspneic. Breathing is non-labored. Vital signs: Temperature 98.1, maximum temperature 103, blood pressure 105/68, pulse 84 regular, respirations 18 per minute. HEENT: Sclerae anicteric. Oropharynx, no exudate or injection. Neck: Supple. No palpable nodes. Heart: Heart sounds S1, S2. Lungs: Bilateral rhonchi and a few bibasilar crepitations. Abdomen: Is soft, nontender. Extremities: Negative edema. IMPRESSION: A 76-year-old male admitted from home with several-day history of cough, congestion, anorexia, generalized weakness, and confusion. Febrile to 103 in the emergency room with a normal white blood cell count and negative influenza screen. 1. Viral pneumonitis versus community-acquired pneumonia, possible influenza. 2. Lactic acidosis. 3. Toxic metabolic encephalopathy. PLAN: Await culture results. Obtain sputum culture, urine legionella, and pneumococcal antigens. Continue empiric Zithromax and ceftriaxone. Will continue droplet precautions and Tamiflu despite negative influenza screen in light of high index of suspicion for viral illness and influenza activity in the community. Thank you for the kind referral. AB FERRIS M.D. [id number]
--- NOTE | 2017-04-06 09:52 | EKG ---
Test Reason : Blood Pressure : / mmHG Vent. Rate : 109 BPM Atrial Rate : 109 BPM P-R Int : 122 ms QRS Dur : 082 ms QT Int : 324 ms P-R-T Axes : 024 075 036 degrees QTc Int : 436 ms SINUS TACHYCARDIA POSSIBLE LEFT ATRIAL ENLARGEMENT BORDERLINE ECG WHEN COMPARED WITH ECG OF 26-JAN-2017 18:28, NO SIGNIFICANT CHANGE WAS FOUND Confirmed by HUNG BARBER MD ([id number]) on 04/06/2017 9:51:18 AM Referred By: DR JOSHI Confirmed By:HUNG BARBER MD
[2017-04-06] MEDS ORDERED: PT OWN MED DRAWER 7, Y5N ONE ×2 (10:00→17:27)
[2017-04-06] MEDS ORDERED: OSELTAMIVIR PHOSPHATE 75 MG CAPSULE PO SCH (10:00)
[2017-04-06] MEDS: DONEPEZIL HCL 10 MG TABLET (FP) PO SCH (10:04)
[2017-04-06] MEDS: FINASTERIDE 5 MG TABLET (FP) PO SCH (10:05)
[2017-04-06] MEDS: LACTOBACILLUS ACIDOPHILUS 1 EACH TAB (FP) PO SCH (10:05)
[2017-04-06] MEDS: DIPYRIDAMOLE 75 MG TABLET PO SCH (10:05)
[2017-04-06] MEDS: FAMOTIDINE 20 MG TABLET PO SCH ×2 (10:05→21:42)
[2017-04-06] MEDS: OSELTAMIVIR PHOSPHATE 30 MG CAPSULE PO SCH ×2 (10:05→21:42)
[2017-04-06] MEDS: HEPARIN NA (PORCINE) 5,000 UNITS/ML 1ML VIAL SQ SCH ×2 (10:05→21:42)
[2017-04-06] MEDS ORDERED: INSULIN (NOVOLOG) ASPART 100 UNITS/ML 10ML VIAL ONE ×2 (12:01→16:15)
[2017-04-06] MEDS: INSULIN SLIDING SCALE (NOVOLOG) 1 VIAL SQ SCH ×2 (12:02→16:59)
[2017-04-06] MEDS ORDERED: CEFTRIAXONE 1 GM/50 ML BAG IVPB SCH (17:30)
[2017-04-06] MEDS: CEFTRIAXONE 1 G/50 ML PREMIX 50 ML IVPB SCH (17:33)
[2017-04-06] MEDS: AZITHROMYCIN IVPB 250 ML IVPB SCH (17:33)
[2017-04-06] MEDS ORDERED: AZITHROMYCIN IVPB 500 MG in DEXTROSE 5%-WATER - 250 ML IVPB SCH (18:00)
[2017-04-06] MEDS ORDERED: CEFTRIAXONE 1 GM in DEXTROSE 5%-WATER - 50 ML IVPB SCH (18:00)
[2017-04-06] MEDS: ATORVASTATIN CA 20 MG TABLET (FP) PO SCH (21:42)
[2017-04-07] MEDS ORDERED: INSULIN (NOVOLOG) ASPART 100 UNITS/ML 10ML VIAL ONE (06:57)
[2017-04-07] MEDS: INSULIN SLIDING SCALE (NOVOLOG) 1 VIAL SQ SCH ×2 (06:58→11:00)
[2017-04-07] MEDS: CEFTRIAXONE 1 G/50 ML PREMIX 50 ML IVPB SCH (09:00)
[2017-04-07] MEDS: DONEPEZIL HCL 10 MG TABLET (FP) PO SCH (09:46)
[2017-04-07] MEDS: FAMOTIDINE 20 MG TABLET PO SCH ×2 (09:47→21:33)
[2017-04-07] MEDS: LACTOBACILLUS ACIDOPHILUS 1 EACH TAB (FP) PO SCH (09:47)
[2017-04-07] MEDS: FINASTERIDE 5 MG TABLET (FP) PO SCH (09:48)
[2017-04-07] MEDS: DIPYRIDAMOLE 75 MG TABLET PO SCH (09:48)
[2017-04-07] MEDS: OSELTAMIVIR PHOSPHATE 30 MG CAPSULE PO SCH ×2 (09:49→21:33)
[2017-04-07] MEDS: HEPARIN NA (PORCINE) 5,000 UNITS/ML 1ML VIAL SQ SCH ×2 (09:51→21:33)
[2017-04-07] MEDS: AZITHROMYCIN IVPB 250 ML IVPB SCH (10:06)
--- NOTE | 2017-04-07 11:41 | PN ---
Physical Exam: SUBJECTIVE: Patient seen and examined He has been afebrile last 24 hours He is feeling better No acute complaints, cough continues, but less Taking meals well, appetite is better OBJECTIVE: Vital Signs Period Temp Pulse Resp BP Sys/Pizano Pulse Ox Last 24 Hr 98.0 F-98.7 F 68-80 16-18 113-122/60-73 94-100 GENERAL: The patient is awake, alert, and oriented, in no acute distress. He is hard of hearing but can communicate when spoken to with a loud voice to the R ear. Sitting in chair and gets up to walk around the room with IV pole. Conversing with his son who is at the bedside. HEAD: Normal with no signs of trauma. EYES: PERRL, extraocular movements intact, sclera anicteric, conjunctiva clear. No ptosis. ENT: Ears normal, nares patent, oropharynx clear without exudates, moist mucous membranes. NECK: Trachea midline, full range of motion, supple. LUNGS: Breath sounds equal, clear on relaxed breathing, mild wheezes scattered on coughing, no crackles. HEART: Regular rate and rhythm, S1, S2 without murmur, rub or gallop. ABDOMEN: Soft, nontender, nondistended, normoactive bowel sounds, no guarding, no rebound, no hepatosplenomegaly, no masses. EXTREMITIES: 2+ pulses, warm, well-perfused, no edema. No tenderness. NEUROLOGICAL: Cranial nerves II through XII grossly intact. Normal speech, gait normal. PSYCH: Normal mood, normal affect. SKIN: Warm, dry, normal turgor, no rashes or lesions noted Laboratory Results - last 24 hr 04/06/17 04/06/17 04/06/17 11:24 16:13 21:39 POC Glucometer 184 171 148 04/07/17 06:55 POC Glucometer 157 Active Medications Generic Name Dose Route Start Last Admin Trade Name Freq PRN Reason Stop Dose Admin Acetaminophen 650 mg 04/06/17 00:02 04/06/17 13:10 Tylenol - PO 650 mg Q6H PRN Administration FEVER OR PAIN Albuterol Sulfate 1 amp 04/06/17 08:39 04/06/17 10:23 Ventolin 0.083% Nebulizer Soln - NEB 1 amp Q4H PRN Administration SHORT OF BREATH/WHEEZING Atorvastatin Calcium 20 mg 04/06/17 22:00 04/06/17 21:42 Lipitor - PO 20 mg HS EDWIN Administration Azithromycin 250 mg 04/08/17 10:00 Zithromax - PO DAILY EDWIN Dipyridamole 75 mg 04/06/17 10:00 04/07/17 09:48 Persantine - PO 75 mg DAILY EDWIN Administration Donepezil HCl 10 mg 04/06/17 10:00 04/07/17 09:46 Aricept - PO 10 mg DAILY EDWIN Administration Famotidine 20 mg 04/06/17 10:00 04/07/17 09:47 Pepcid - PO 20 mg BID EDWIN Administration Finasteride 5 mg 04/06/17 10:00 04/07/17 09:48 Proscar - PO 5 mg DAILY EDWIN Administration Heparin Sodium (Porcine) 5,000 unit 04/06/17 10:00 04/07/17 09:51 Heparin - SQ 5,000 unit BID EDWIN Administration Sodium Chloride 1,000 mls @ 50 mls/hr 04/06/17 00:37 04/06/17 02:00 Normal Saline - IV 04/07/17 20:36 50 mls/hr ASDIR STA Administration CEFTRIAXONE 1 G/50 ML PREMIX 50 mls @ 100 mls/hr 04/06/17 17:45 04/07/17 09: 00 Ceftriaxone 1 Gm-D5w Bag IVPB 100 mls/hr DAILY EDWIN Administration Insulin Aspart 1 vial 04/06/17 07:21 04/07/17 06:58 Novolog Vial Sliding Scale - SQ 2 units TIDAC EDWIN Administration Protocol Lactobacillus Acidophilus 1 tab 04/06/17 10:00 04/07/17 09:47 Bacid - PO 1 tab DAILY EDWIN Administration Oseltamivir Phosphate 30 mg 04/06/17 10:00 04/07/17 09:49 Tamiflu - PO 04/11/17 09:59 30 mg BID EDWIN Administration ASSESSMENT/PLAN: 1. pneumonia possibly viral or atypical bacterial repeat CXR yesterday with patchy interstitial changes, more in the right mid lung field now afebrile on ceftriaxone azithromycin feeling better still some cough but less continue albuterol prn for mild wheezing no need for steroids 2. ID continue ceftriaxone 1 g daily, will switch to po tomorrow if he continues to improve azithromycin switched to po from IV for tomorrow tamiflu continues at renal dosing calculated creatinine clearance with creatinine down to 1.3 remains around 45 3. YADY creatinine was improved yesterday will repeat BMP today, pending 4. DM continue coverage with insulin sliding scale 5. dementia continue aricept 6. prophylaxis hep SQ BID Visit type - Emergency Visit Emergency Visit: Yes ED Registration Date: 04/05/17 Care time: The patient presented to the Emergency Department on the above date and was hospitalized for further evaluation of their emergent condition. - New Patient This patient is new to me today: Yes Date on this admission: 04/07/17 - Critical Care Critical Care patient: No - Discharge Referral Referred to [facility] Yes Physician Referral: Arthur Fernandes MD ([facility])
[2017-04-07 12:53] LABS: EOS % 0.5 % (0-4.5); HEMOGLOBIN 9.7 GM/dl (11.7-16.9); LYMPH % 34.4 % (8-40); MCH 26.2 pg (25.7-33.7); MCHC 32.4 g/dl (32.0-35.9); MEAN CELL VOLUME 80.7 fl (80-96); MEAN PLT VOLUME 8.2 fl (7.5-11.1); MONO % 8.8 % (3.8-10.2); NEUT % 55.3 % (42.8-82.8); PLATELET COUNT 198 K/MM3 (134-434); RBC 3.72 M/mm3 (4.00-5.60); RDW 12.2 % (11.9-15.9); WHITE BLOOD COUNT 3.7 K/mm3 (4.0-10.8)
[2017-04-07 12:54] LABS: ANION GAP 9 (8-16); CALCIUM 8.2 mg/dl (8.4-10.2); CHLORIDE 103 mmol/L (98-107); CO2 23 mmol/L (22-28); SODIUM 135 mmol/L (136-145)
[2017-04-07 12:56] LABS: BLOOD UREA NITROGEN 14 mg/dl (7-18); GLUCOSE,RANDOM 152 mg/dl (74-106)
[2017-04-07] MEDS: ATORVASTATIN CA 20 MG TABLET (FP) PO SCH (21:33)
[2017-04-08] MEDS ORDERED: INSULIN (NOVOLOG) ASPART 100 UNITS/ML 10ML VIAL ONE (07:06)
[2017-04-08] MEDS: INSULIN SLIDING SCALE (NOVOLOG) 1 VIAL SQ SCH (07:08)
[2017-04-08 09:01] VITALS: BP 157/75; PULSE 101; TEMP 98.4
[2017-04-08] MEDS: LACTOBACILLUS ACIDOPHILUS 1 EACH TAB (FP) PO SCH (09:14)
[2017-04-08] MEDS: DONEPEZIL HCL 10 MG TABLET (FP) PO SCH (09:14)
[2017-04-08] MEDS: FAMOTIDINE 20 MG TABLET PO SCH (09:14)
[2017-04-08] MEDS: DIPYRIDAMOLE 75 MG TABLET PO SCH (09:14)
[2017-04-08] MEDS: FINASTERIDE 5 MG TABLET (FP) PO SCH (09:15)
[2017-04-08] MEDS: CEFTRIAXONE 1 G/50 ML PREMIX 50 ML IVPB SCH (09:15)
[2017-04-08] MEDS: OSELTAMIVIR PHOSPHATE 30 MG CAPSULE PO SCH (09:15)
[2017-04-08] MEDS: HEPARIN NA (PORCINE) 5,000 UNITS/ML 1ML VIAL SQ SCH (09:16)
--- NOTE | 2017-04-08 09:44 | PN ---
Physical Exam: SUBJECTIVE: Patient seen and examined He is ambulatory and feeling much better today. His cough is much less and there is no chest pain or shortness of breath. He is eating well. OBJECTIVE: Vital Signs Period Temp Pulse Resp BP Sys/Pizano Pulse Ox Last 24 Hr 97.8 F-99.4 F 86-102 16-20 113-157/48-85 98 GENERAL: The patient is awake, alert, and fully oriented, in no acute distress. He is ambulating in his room and in the hallway. HEAD: Normal with no signs of trauma. EYES: PERRL, extraocular movements intact, sclera anicteric, conjunctiva clear. No ptosis. ENT: Ears normal, nares patent, oropharynx clear without exudates, moist mucous membranes. NECK: Trachea midline, full range of motion, supple. LUNGS: Breath sounds equal, clear to auscultation bilaterally, no wheezes, no crackles, no accessory muscle use. HEART: Regular rate and rhythm, S1, S2 without murmur, rub or gallop. ABDOMEN: Soft, nontender, nondistended, normoactive bowel sounds, no guarding, no rebound, no hepatosplenomegaly, no masses. EXTREMITIES: 2+ pulses, warm, well-perfused, no edema. NEUROLOGICAL: Cranial nerves II through XII grossly intact. Normal speech, normal gait. PSYCH: Normal mood, normal affect. SKIN: Warm, dry, normal turgor, no rashes or lesions noted Laboratory Results - last 24 hr 04/07/17 04/07/17 04/07/17 07:08 07:08 16:51 WBC 3.7 L D RBC 3.72 L Hgb 9.7 L Hct 30.0 L MCV 80.7 MCH 26.2 MCHC 32.4 RDW 12.2 Plt Count 198 MPV 8.2 Neutrophils % 55.3 D Lymphocytes % 34.4 D Monocytes % 8.8 Eosinophils % 0.5 Basophils % 1.0 D Sodium 135 L Potassium 4.0 Chloride 103 Carbon Dioxide 23 Anion Gap 9 BUN 14 D Creatinine 1.0 D POC Glucometer 183 Random Glucose 152 H Calcium 8.2 L 04/08/17 06:59 WBC RBC Hgb Hct MCV MCH MCHC RDW Plt Count MPV Neutrophils % Lymphocytes % Monocytes % Eosinophils % Basophils % Sodium Potassium Chloride Carbon Dioxide Anion Gap BUN Creatinine POC Glucometer 210 Random Glucose Calcium Active Medications Generic Name Dose Route Start Last Admin Trade Name Freq PRN Reason Stop Dose Admin Acetaminophen 650 mg 04/06/17 00:02 04/06/17 13:10 Tylenol - PO 650 mg Q6H PRN Administration FEVER OR PAIN Albuterol Sulfate 1 amp 04/06/17 08:39 04/06/17 10:23 Ventolin 0.083% Nebulizer Soln - NEB 1 amp Q4H PRN Administration SHORT OF BREATH/WHEEZING Atorvastatin Calcium 20 mg 04/06/17 22:00 04/07/17 21:33 Lipitor - PO 20 mg HS EDWIN Administration Azithromycin 250 mg 04/08/17 10:00 Zithromax - PO DAILY EDWIN Dipyridamole 75 mg 04/06/17 10:00 04/08/17 09:14 Persantine - PO 75 mg DAILY EDWIN Administration Donepezil HCl 10 mg 04/06/17 10:00 04/08/17 09:14 Aricept - PO 10 mg DAILY EDWIN Administration Famotidine 20 mg 04/06/17 10:00 04/08/17 09:14 Pepcid - PO 20 mg BID EDWIN Administration Finasteride 5 mg 04/06/17 10:00 04/08/17 09:15 Proscar - PO 5 mg DAILY EDWIN Administration Heparin Sodium (Porcine) 5,000 unit 04/06/17 10:00 04/08/17 09:16 Heparin - SQ Not Given BID EDWIN CEFTRIAXONE 1 G/50 ML PREMIX 50 mls @ 100 mls/hr 04/06/17 17:45 04/08/17 09: 15 Ceftriaxone 1 Gm-D5w Bag IVPB 100 mls/hr DAILY EDWIN Administration Insulin Aspart 1 vial 04/06/17 07:21 04/08/17 07:08 Novolog Vial Sliding Scale - SQ 4 units TIDAC EDWIN Administration Protocol Lactobacillus Acidophilus 1 tab 04/06/17 10:00 04/08/17 09:14 Bacid - PO 1 tab DAILY EDWIN Administration Oseltamivir Phosphate 30 mg 04/06/17 10:00 04/08/17 09:15 Tamiflu - PO 04/11/17 09:59 30 mg BID EDWIN Administration ASSESSMENT/PLAN: Pneumonia improved O2 sat and clinical status is good will discharge to complete course of azithromycin and tamiflu likely etiology is more atypical or viral, although cultures were all negative stable for discharge today DM, BPH, HLD, dementia to resume home meds YADY resolved with hydration Visit type - Emergency Visit Emergency Visit: Yes ED Registration Date: 04/05/17 Care time: The patient presented to the Emergency Department on the above date and was hospitalized for further evaluation of their emergent condition. - New Patient This patient is new to me today: No - Critical Care Critical Care patient: No - Discharge Referral Referred to [facility] No
--- NOTE | 2017-04-08 09:47 | DS ---
Physical Exam: SUBJECTIVE: Patient seen and examined see progresss note today doing well ready for discharge OBJECTIVE: Vital Signs Period Temp Pulse Resp BP Sys/Pizano Pulse Ox Last 24 Hr 97.8 F-99.4 F 86-102 16-20 113-157/48-85 98 PHYSICAL EXAM GENERAL: The patient is awake, alert, and fully oriented, in no acute distress. HEAD: Normal with no signs of trauma. EYES: PERRL, extraocular movements intact, sclera anicteric, conjunctiva clear. ENT: Ears normal, nares patent, oropharynx clear without exudates, moist mucous membranes. NECK: Trachea midline, full range of motion, supple. LUNGS: Breath sounds equal, clear to auscultation bilaterally, no wheezes, no crackles, no accessory muscle use. HEART: Regular rate and rhythm, S1, S2 without murmur, rub or gallop. ABDOMEN: Soft, nontender, nondistended, normoactive bowel sounds, no guarding, no rebound, no hepatosplenomegaly, no masses. EXTREMITIES: 2+ pulses, warm, well-perfused, no edema. NEUROLOGICAL: Cranial nerves II through XII grossly intact. Normal speech, gait not observed. PSYCH: Normal mood, normal affect. SKIN: Warm, dry, normal turgor, no rashes or lesions noted. LABS Laboratory Results - last 24 hr 04/07/17 04/07/17 04/07/17 07:08 07:08 16:51 WBC 3.7 L D RBC 3.72 L Hgb 9.7 L Hct 30.0 L MCV 80.7 MCH 26.2 MCHC 32.4 RDW 12.2 Plt Count 198 MPV 8.2 Neutrophils % 55.3 D Lymphocytes % 34.4 D Monocytes % 8.8 Eosinophils % 0.5 Basophils % 1.0 D Sodium 135 L Potassium 4.0 Chloride 103 Carbon Dioxide 23 Anion Gap 9 BUN 14 D Creatinine 1.0 D POC Glucometer 183 Random Glucose 152 H Calcium 8.2 L 04/08/17 06:59 WBC RBC Hgb Hct MCV MCH MCHC RDW Plt Count MPV Neutrophils % Lymphocytes % Monocytes % Eosinophils % Basophils % Sodium Potassium Chloride Carbon Dioxide Anion Gap BUN Creatinine POC Glucometer 210 Random Glucose Calcium HOSPITAL COURSE: Date of Admission:04/05/17 Date of Discharge: 04/08/17 Patient was admitted with fever and cough, patchy infiltrates on CXR. Cultures and flu swab negative. Presumed viral vs atypical bacterial pneumonia. Treated with tamiflu, ceftriaxone and azithromycin. Seen by ID who agreed with antivirals based on high clinical suspicion despite negative flu swab. YADY on initial labs, resolved with hydration. Clinical improved and discharged to complete course of azithromycin and tamiflu , with follow up to PMD Dr. Archuleta in 3 days. Minutes to complete discharge: 50 Discharge Summary Reason For Visit: COUGH, ANOREXIA Current Active Problems Acute renal failure (Acute) Alzheimer's dementia (Acute) Pneumonia (Acute) Sepsis (Acute) Condition: Improved - Instructions Diet, Activity, Other Instructions: You were hospitalized for pneumonia. You should expect the cough to continue to improve over the next few days. Take your home medications as before, and take 3 more days of azithromycin daily, and tamiflu for 3 days. Follow up with Dr. Archuleta in [address] Archuleta or return to the hospital ER for any serious symptoms. Referrals: Elizabeth Archuleta [Primary Care Provider] - 04/11/17 (Patient was admitted with fever, cough, and patchy infiltrates consistent with atypical pneumonia. Flu swab and cultures were negative, but ID consult recommended course of antibiotics and antiviral. Discharged to complete oral azithromycin, and tamiflu. Advised office follow up in 3 days.) Disposition: HOME - Home Medications Comprehensive Discharge Medication List: Ambulatory Orders Donepezil HCl [Aricept] 10 mg PO HS 02/06/16 Simvastatin [Zocor -] 40 mg PO HS 02/06/16 Omeprazole 20 mg PO DAILY 01/26/17 Tamsulosin HCl [Flomax -] 0.4 mg PO DAILY 01/26/17 Dipyridamole [Persantine -] 75 mg PO DAILY tablet 01/28/17 Finasteride [Proscar -] 5 mg PO DAILY tablet 01/28/17 Metformin HCl [Glucophage -] 500 mg PO BID@0700,1630 tablet 01/28/17 Azithromycin [Zithromax 250mg Tablets -] 250 mg PO DAILY #3 tablet 04/08/17 Oseltamivir Phosphate [Tamiflu -] 30 mg PO BID #6 capsule 04/08/17 This patient is new to me today: No Emergency Visit: Yes ED Registration Date: 04/05/17 Care time: The patient presented to the Emergency Department on the above date and was hospitalized for further evaluation of their emergent condition. Critical Care patient: No - Discharge Referral Referred to [facility] No
[2017-04-08] MEDS ORDERED: AZITHROMYCIN 250 MG TABLET PO SCH (10:00)
== END 2017-04-08 09:46 | disposition home or self-care (01) | DRG 720 ==
LOC: SUPCPDRO 21:59 → FER 21:59 → FM/S 23:55
PROVIDERS: ADMIT Internal Medicine; ATTEND Emergency Medicine
DX: A41.9 Sepsis, unspecified organism (principal); J18.9 Pneumonia, unspecified organism; G93.41 Metabolic encephalopathy; E87.2 Acidosis; N17.9 Acute kidney failure, unspecified; G30.9 Alzheimer's disease, unspecified; F02.80 Dementia in other diseases classified elsewhere, unspecified severity, without behavioral disturbance, psychotic disturbance, mood disturbance, and anxiety; N40.0 Benign prostatic hyperplasia without lower urinary tract symptoms; E78.5 Hyperlipidemia, unspecified; Z86.73 Personal history of transient ischemic attack (TIA), and cerebral infarction without residual deficits; E11.9 Type 2 diabetes mellitus without complications
CPT/HCPCS: 36415; 71010-TC; 71020-TC; 80048; 80053; 81003; 81015; 82550; 83605; 84484; 85025; 86615; 87040; 87070; 87086; 87205; 87804; 87899; 93005; 94010; 94640; 97116-GP; 97161-GP; 99283-25; J1644

== ENCOUNTER 2021-04-05 13:22 | Observation (INO) | payer BC, OTHER ==
[2021-04-05] MEDS ORDERED: ACETAMINOPHEN 1000 MG/100 ML BAG IVPB ONE ×2 (14:12→18:52)
[2021-04-05 14:58] LABS: ACTIVATED PTT 15.5 SECONDS (25.2-36.5)
[2021-04-05 15:03] LABS: ALBUMIN 4.2 g/dl (3.4-5.0); BILIRUBIN,TOTAL 0.4 mg/dl (0.2-1); CALCIUM 9.5 mg/dl (8.5-10); CREATININE 1.3 mg/dl (0.55-1.3); INR 0.99 (0.83-1.09); TOT PROT 7.5 g/dl (6.4-8.2)
[2021-04-05 16:26] LABS: HEMATOCRIT 35.9 % (35.4-49); HEMOGLOBIN 11.6 GM/dL (11.7-16.9); MCH 26.8 pg (25.7-33.7); MCHC 32.3 g/dl (32.0-35.9); MEAN CELL VOLUME 82.8 fl (80-96); RBC 4.34 M/mm3 (4.00-5.60); RDW 12.6 % (11.9-15.9)
[2021-04-05 17:21] LABS: ANISOCYTOSIS 0; MACROCYTOSIS 0
[2021-04-05 17:22] LABS: PLATELET ESTIMATE ADEQUATE
[2021-04-05 17:25] LABS: WHITE BLOOD COUNT 6.6 K/mm3 (4.0-10.0)
[2021-04-05] MEDS ORDERED: ACETAMINOPHEN INJECTION 100 ML IVPB ONE (19:30)
[2021-04-06] MEDS: ACETAMINOPHEN 1000 MG/100 ML BAG IVPB PRN ×2 (01:11→16:26)
[2021-04-06] MEDS: ATORVASTATIN CA 20 MG TABLET (FP) PO SCH ×2 (01:11→21:08)
[2021-04-06] MEDS: DONEPEZIL HCL 10 MG TABLET (FP) PO SCH ×2 (01:11→21:08)
[2021-04-06 04:10] VITALS: BMI 20.9
[2021-04-06] MEDS: TAMSULOSIN HCL 0.4 MG CAP PO SCH (08:25)
[2021-04-06] MEDS: FINASTERIDE 5 MG TABLET (FP) PO SCH (10:05)
[2021-04-06] MEDS: DIPYRIDAMOLE 75 MG TABLET PO SCH (10:05)
[2021-04-06] MEDS: ENOXAPARIN NA (PORCINE) 40 MG/0.4 ML DISP.SYRIN SQ SCH (10:09)
[2021-04-06] MEDS: INSULIN SLIDING SCALE (NOVOLOG) 1 VIAL SQ SCH ×3 (11:13→21:10)
[2021-04-06] MEDS: metFORMIN HCL 500 MG TABLET (FP) PO SCH (16:25)
[2021-04-06] MEDS ORDERED: ONDANSETRON 4 MG/2 ML VIAL IVPUSH PRN (20:20)
[2021-04-07] MEDS: INSULIN SLIDING SCALE (NOVOLOG) 1 VIAL SQ SCH ×4 (06:24→21:12)
[2021-04-07] MEDS: metFORMIN HCL 500 MG TABLET (FP) PO SCH ×2 (06:34→17:08)
[2021-04-07] MEDS: TAMSULOSIN HCL 0.4 MG CAP PO SCH (08:52)
[2021-04-07] MEDS: ACETAMINOPHEN 1000 MG/100 ML BAG IVPB SCH ×3 (08:55→21:10)
[2021-04-07] MEDS ORDERED: PT OWN MED DRAWER 7, Y5N ONE (08:57)
[2021-04-07] MEDS: DIPYRIDAMOLE 75 MG TABLET PO SCH (08:59)
[2021-04-07] MEDS: FINASTERIDE 5 MG TABLET (FP) PO SCH (08:59)
[2021-04-07] MEDS: ENOXAPARIN NA (PORCINE) 40 MG/0.4 ML DISP.SYRIN SQ SCH (08:59)
[2021-04-07] MEDS: oxyCODONE HCL 5 MG TABLET PO PRN (10:14)
[2021-04-07] MEDS: ATORVASTATIN CA 20 MG TABLET (FP) PO SCH (21:11)
[2021-04-07] MEDS: DONEPEZIL HCL 10 MG TABLET (FP) PO SCH (21:11)
[2021-04-08] MEDS: ACETAMINOPHEN 1000 MG/100 ML BAG IVPB SCH (03:03)
[2021-04-08] MEDS: INSULIN SLIDING SCALE (NOVOLOG) 1 VIAL SQ SCH ×4 (06:40→22:16)
[2021-04-08] MEDS: metFORMIN HCL 500 MG TABLET (FP) PO SCH ×2 (06:46→16:14)
[2021-04-08] MEDS: TAMSULOSIN HCL 0.4 MG CAP PO SCH (08:53)
[2021-04-08] MEDS: FINASTERIDE 5 MG TABLET (FP) PO SCH (09:19)
[2021-04-08] MEDS: ENOXAPARIN NA (PORCINE) 40 MG/0.4 ML DISP.SYRIN SQ SCH (09:19)
[2021-04-08] MEDS: DIPYRIDAMOLE 75 MG TABLET PO SCH (09:19)
[2021-04-08] MEDS: oxyCODONE HCL 5 MG TABLET PO PRN ×2 (10:53→20:21)
[2021-04-08] MEDS: ACETAMINOPHEN 325 MG TABLET (FP) PO PRN ×2 (10:54→20:23)
[2021-04-08] MEDS: ATORVASTATIN CA 20 MG TABLET (FP) PO SCH (21:15)
[2021-04-08] MEDS: DONEPEZIL HCL 10 MG TABLET (FP) PO SCH (21:15)
[2021-04-09] MEDS: metFORMIN HCL 500 MG TABLET (FP) PO SCH ×2 (06:20→17:21)
[2021-04-09] MEDS: INSULIN SLIDING SCALE (NOVOLOG) 1 VIAL SQ SCH ×4 (06:20→21:06)
[2021-04-09] MEDS ORDERED: PT OWN MED DRAWER 7, Y5N ONE (09:36)
[2021-04-09] MEDS: DIPYRIDAMOLE 75 MG TABLET PO SCH (09:41)
[2021-04-09] MEDS: TAMSULOSIN HCL 0.4 MG CAP PO SCH (09:41)
[2021-04-09] MEDS: FINASTERIDE 5 MG TABLET (FP) PO SCH (09:41)
[2021-04-09] MEDS: oxyCODONE HCL 5 MG TABLET PO PRN ×2 (09:41→20:16)
[2021-04-09] MEDS: ENOXAPARIN NA (PORCINE) 40 MG/0.4 ML DISP.SYRIN SQ SCH (09:42)
[2021-04-09] MEDS: ACETAMINOPHEN 325 MG TABLET (FP) PO PRN (20:15)
[2021-04-09] MEDS: ATORVASTATIN CA 20 MG TABLET (FP) PO SCH (21:05)
[2021-04-09] MEDS: DONEPEZIL HCL 10 MG TABLET (FP) PO SCH (21:06)
[2021-04-10] MEDS: oxyCODONE HCL 5 MG TABLET PO PRN ×3 (05:05→16:59)
[2021-04-10] MEDS: ACETAMINOPHEN 325 MG TABLET (FP) PO PRN ×2 (05:06→16:29)
[2021-04-10] MEDS: INSULIN SLIDING SCALE (NOVOLOG) 1 VIAL SQ SCH ×3 (06:12→16:59)
[2021-04-10] MEDS: metFORMIN HCL 500 MG TABLET (FP) PO SCH ×2 (06:22→16:49)
[2021-04-10] MEDS ORDERED: PT OWN MED DRAWER 7, Y5N ONE ×2 (09:33→10:01)
[2021-04-10] MEDS: TAMSULOSIN HCL 0.4 MG CAP PO SCH (10:00)
[2021-04-10] MEDS: FINASTERIDE 5 MG TABLET (FP) PO SCH (10:00)
[2021-04-10] MEDS: DIPYRIDAMOLE 75 MG TABLET PO SCH (10:01)
[2021-04-10] MEDS: ENOXAPARIN NA (PORCINE) 40 MG/0.4 ML DISP.SYRIN SQ SCH (10:01)
[2021-04-10 10:44] LABS: ALBUMIN 3.9 g/dl (3.4-5.0); BILIRUBIN,TOTAL 0.8 mg/dl (0.2-1); CALCIUM 9.1 mg/dl (8.5-10); CREATININE 1.1 mg/dl (0.55-1.3); MAGNESIUM 1.8 mg/dL (1.8-2.4); TOT PROT 6.9 g/dl (6.4-8.2)
[2021-04-10 10:48] LABS: HEMATOCRIT 34.6 % (35.4-49); HEMOGLOBIN 10.9 GM/dL (11.7-16.9); MCH 26.2 pg (25.7-33.7); MCHC 31.6 g/dl (32.0-35.9); MEAN PLT VOLUME 7.3 fl (7.5-11.1); PLATELET COUNT 264 10^3/uL (134-434); RBC 4.17 M/mm3 (4.00-5.60); RDW 12.6 % (11.9-15.9); WHITE BLOOD COUNT 3.9 K/mm3 (4.0-10.0)
[2021-04-10] MEDS: DONEPEZIL HCL 10 MG TABLET (FP) PO SCH (21:44)
[2021-04-10] MEDS: ATORVASTATIN CA 20 MG TABLET (FP) PO SCH (21:44)
[2021-04-11] MEDS: INSULIN SLIDING SCALE (NOVOLOG) 1 VIAL SQ SCH (06:44)
[2021-04-11] MEDS: metFORMIN HCL 500 MG TABLET (FP) PO SCH (06:56)
[2021-04-11] MEDS ORDERED: PT OWN MED DRAWER 7, Y5N ONE (08:56)
[2021-04-11] MEDS: FINASTERIDE 5 MG TABLET (FP) PO SCH (09:03)
[2021-04-11] MEDS: TAMSULOSIN HCL 0.4 MG CAP PO SCH (09:03)
[2021-04-11] MEDS: ENOXAPARIN NA (PORCINE) 40 MG/0.4 ML DISP.SYRIN SQ SCH (09:03)
[2021-04-11] MEDS: ACETAMINOPHEN 325 MG TABLET (FP) PO PRN (09:04)
[2021-04-11] MEDS: DIPYRIDAMOLE 75 MG TABLET PO SCH (09:05)
[2021-04-11 09:31] VITALS: BP 107/58; PULSE 84; TEMP 97.6
== END 2021-04-11 11:21 | disposition home or self-care (01) ==
LOC: FER 13:22 → FM/S 23:08 → UNDOADMOB 23:08 → INTOOBSV 23:08 → FM/S 23:47
PROVIDERS: ADMIT Internal Medicine; ATTEND Nurse Practitioner Acute Care
PROC: 3E033NZ Introduction of Analgesics, Hypnotics, Sedatives into Peripheral Vein, Percutaneous Approach (ICD-10-PCS; principal; 2021-04-05)
PROC: 3E023GC Introduction of Other Therapeutic Substance into Muscle, Percutaneous Approach (ICD-10-PCS; 2021-04-05)
PROC: 3E033GC Introduction of Other Therapeutic Substance into Peripheral Vein, Percutaneous Approach (ICD-10-PCS; 2021-04-05)
DX: S32.592A Other specified fracture of left pubis, initial encounter for closed fracture (principal); G30.9 Alzheimer's disease, unspecified; F02.80 Dementia in other diseases classified elsewhere, unspecified severity, without behavioral disturbance, psychotic disturbance, mood disturbance, and anxiety; Z86.79 Personal history of other diseases of the circulatory system; N40.0 Benign prostatic hyperplasia without lower urinary tract symptoms; E11.9 Type 2 diabetes mellitus without complications; W18.39XA Other fall on same level, initial encounter; Y93.89 Activity, other specified; Y92.89 Other specified places as the place of occurrence of the external cause; E78.5 Hyperlipidemia, unspecified; I69.354 Hemiplegia and hemiparesis following cerebral infarction affecting left non-dominant side; Z29.9 Encounter for prophylactic measures, unspecified
CPT/HCPCS: 36415; 70450-TC; 71045-TC-FY; 72125-TC; 72192-TC; 80053; 82550; 82962; 83735; 84484; 85025; 85027; 85610; 85730; 93005; 97116-GP; 97162-GP; 99285-25; C9803; G0378; J0131; U0003; U0005

== ENCOUNTER 2022-08-07 17:25 | Inpatient (IN) | payer BC, OTHER ==
[2022-08-07] MEDS ORDERED: SODIUM CHLORIDE 1,000 ML IV ONE (17:56)
[2022-08-07 19:14] LABS: HEMATOCRIT 30.8 % (35.4-49); MCH 29.1 pg (25.7-33.7); MCHC 32.4 g/dl (32.0-35.9); MEAN CELL VOLUME 89.7 fl (80-96); MEAN PLT VOLUME 8.3 fl (7.5-11.1); RBC 3.43 10^6/uL (4.00-5.60); WHITE BLOOD COUNT 4.6 10^3/uL (4.0-10.8)
[2022-08-07 19:17] LABS: INR 1.09 (0.83-1.09); PROTHROMBIN TIME (PATIENT) 12.5 SEC (9.7-13.0)
[2022-08-07 19:25] LABS: BILIRUBIN,TOTAL 0.7 mg/dl (0.2-1); CALCIUM 9.1 mg/dl (8.5-10); CREATININE 1.3 mg/dl (0.55-1.3); MAGNESIUM 2.1 mg/dL (1.8-2.4); PHOSPHOROUS 3.5 mg/dl (2.5-4.9); POTASSIUM 4.4 mmol/L (3.5-5.1)
[2022-08-07 19:55] LABS: PLATELET ESTIMATE ADEQUATE
[2022-08-07 20:53] LABS: VENOUS BASE EXCESS 8.4 mmol/L (-2-2); VENOUS PCO2 51.7 mmHg (38-52); VENOUS PH 7.427 (7.310-7.410)
[2022-08-07] MEDS ORDERED: ACETAMINOPHEN 1000 MG/100 ML BAG IVPB PRN (23:13)
[2022-08-08] MEDS: DEXTROSE 5%-NORMAL SALINE 1,000 ML IV SCH (00:07)
[2022-08-08 08:31] LABS: POTASSIUM 3.6 mmol/L (3.5-5.1)
[2022-08-08 09:55] LABS: BASO % 0.3 % (0-2.0); EOS % 0.2 % (0-4.5); HEMATOCRIT 25.9 % (35.4-49); HEMOGLOBIN 8.3 GM/dL (11.7-16.9); LYMPH % 23.7 % (8-40); MCH 27.8 pg (25.7-33.7); MCHC 32.3 g/dl (32.0-35.9); MEAN CELL VOLUME 86.2 fl (80-96); MEAN PLT VOLUME 7.7 fl (7.5-11.1); MONO % 10.6 % (3.8-10.2); NEUT % 65.2 % (42.8-82.8); PLATELET COUNT 328 10^3/uL (134-434); RDW 15.9 % (11.9-15.9); WHITE BLOOD COUNT 4.2 K/mm3 (4.0-10.0)
[2022-08-09 08:27] LABS: ALBUMIN 2.6 g/dl (3.4-5.0); BILIRUBIN,TOTAL 0.6 mg/dl (0.2-1); CALCIUM 8.5 mg/dl (8.5-10); CREATININE 0.8 mg/dl (0.55-1.3); MAGNESIUM 1.6 mg/dL (1.8-2.4); PHOSPHOROUS 2.4 mg/dl (2.5-4.9); POTASSIUM 3.4 mmol/L (3.5-5.1); TOT PROT 6.2 g/dl (6.4-8.2)
[2022-08-09] MEDS ORDERED: MAGNESIUM SULF 50% (8.12 MEQ/2 ML-1 GM VIAL) IVPB ONE (08:41)
[2022-08-09] MEDS ORDERED: MAGNESIUM SULFATE IN WATER 2 GM/50 ML IVPB IVPB ONE (08:45)
[2022-08-09 09:26] LABS: BASO % 0.2 % (0-2.0); EOS % 0.1 % (0-4.5); HEMATOCRIT 27.4 % (35.4-49); HEMOGLOBIN 9.1 GM/dL (11.7-16.9); LYMPH % 19.8 % (8-40); MCH 28.1 pg (25.7-33.7); MEAN CELL VOLUME 84.9 fl (80-96); MEAN PLT VOLUME 7.5 fl (7.5-11.1); MONO % 8.1 % (3.8-10.2); NEUT % 71.8 % (42.8-82.8); PLATELET COUNT 365 10^3/uL (134-434); RBC 3.23 M/mm3 (4.00-5.60); RDW 15.2 % (11.9-15.9); WHITE BLOOD COUNT 4.3 K/mm3 (4.0-10.0)
[2022-08-09] MEDS ORDERED: POTASSIUM PHOSPHATE 15 MM in SODIUM CHLORIDE 250 ML IVPB ONE (09:45)
[2022-08-09] MEDS: DEXTROSE 5%-NORMAL SALINE 1,000 ML IV SCH (10:34)
[2022-08-09] MEDS: TAMSULOSIN HCL 0.4 MG CAP PO SCH (12:39)
[2022-08-09] MEDS: FINASTERIDE 5 MG TABLET (FP) PO SCH (12:39)
[2022-08-09] MEDS: MEMANTINE HCL 5 MG TABLET (UD) PO SCH (12:39)
[2022-08-09] MEDS: DRONABINOL 2.5 MG CAPSULE PO SCH (17:13)
[2022-08-09] MEDS: DIPYRIDAMOLE 75 MG TABLET PO SCH (17:14)
[2022-08-09 17:41] VITALS: BMI 13.4
[2022-08-09] MEDS: ATORVASTATIN CA 20 MG TABLET (FP) PO SCH (21:41)
[2022-08-09] MEDS: DONEPEZIL HCL 10 MG TABLET (FP) PO SCH (21:41)
[2022-08-09] MEDS: MIRTAZAPINE 15 MG TABLET (FP) PO SCH (21:41)
[2022-08-10] MEDS: DRONABINOL 2.5 MG CAPSULE PO SCH ×2 (08:27→17:46)
[2022-08-10] MEDS: TAMSULOSIN HCL 0.4 MG CAP PO SCH (08:27)
[2022-08-10] MEDS: FINASTERIDE 5 MG TABLET (FP) PO SCH (09:41)
[2022-08-10] MEDS: MEMANTINE HCL 5 MG TABLET (UD) PO SCH (09:41)
[2022-08-10] MEDS: ENOXAPARIN NA (PORCINE) 30 MG/0.3 ML DISP.SYRIN SQ SCH (09:41)
[2022-08-10] MEDS: DIPYRIDAMOLE 75 MG TABLET PO SCH (09:41)
[2022-08-10] MEDS ORDERED: MAGNESIUM 2GM/50ML STERILE WATER IVPB IVPB ONE (16:59)
[2022-08-10] MEDS ORDERED: POTASSIUM PHOSPHATE 15 MM in SODIUM CHLORIDE 250 ML IVPB ONE (16:59)
[2022-08-10] MEDS: MIRTAZAPINE 15 MG TABLET (FP) PO SCH (22:54)
[2022-08-10] MEDS: ATORVASTATIN CA 20 MG TABLET (FP) PO SCH (22:54)
[2022-08-10] MEDS: DONEPEZIL HCL 10 MG TABLET (FP) PO SCH (22:54)
[2022-08-11 08:32] LABS: CALCIUM 8.2 mg/dl (8.5-10); CREATININE 0.9 mg/dl (0.55-1.3); PHOSPHOROUS 3.4 mg/dl (2.5-4.9); POTASSIUM 3.8 mmol/L (3.5-5.1)
[2022-08-11] MEDS: DRONABINOL 2.5 MG CAPSULE PO SCH ×2 (09:22→18:54)
[2022-08-11] MEDS: MEMANTINE HCL 5 MG TABLET (UD) PO SCH (09:22)
[2022-08-11] MEDS: ENOXAPARIN NA (PORCINE) 30 MG/0.3 ML DISP.SYRIN SQ SCH (09:22)
[2022-08-11] MEDS: TAMSULOSIN HCL 0.4 MG CAP PO SCH (09:22)
[2022-08-11] MEDS: FINASTERIDE 5 MG TABLET (FP) PO SCH (09:22)
[2022-08-11 09:52] LABS: BASO % 0.1 % (0-2.0); EOS % 0.1 % (0-4.5); HEMATOCRIT 29.4 % (35.4-49); HEMOGLOBIN 9.8 GM/dL (11.7-16.9); MCH 28.3 pg (25.7-33.7); MCHC 33.2 g/dl (32.0-35.9); MEAN CELL VOLUME 85.4 fl (80-96); MEAN PLT VOLUME 7.4 fl (7.5-11.1); MONO % 10.4 % (3.8-10.2); NEUT % 70.4 % (42.8-82.8); PLATELET COUNT 317 10^3/uL (134-434); RBC 3.45 M/mm3 (4.00-5.60); RDW 15.6 % (11.9-15.9); WHITE BLOOD COUNT 6.5 K/mm3 (4.0-10.0)
[2022-08-11] MEDS: DIPYRIDAMOLE 75 MG TABLET PO SCH (11:30)
[2022-08-11] MEDS: MIRTAZAPINE 15 MG TABLET (FP) PO SCH (21:06)
[2022-08-11] MEDS: ATORVASTATIN CA 20 MG TABLET (FP) PO SCH (21:06)
[2022-08-11] MEDS: DONEPEZIL HCL 10 MG TABLET (FP) PO SCH (21:06)
[2022-08-11] MEDS: DEXTROSE 5%-NORMAL SALINE 1,000 ML IV SCH (23:15)
[2022-08-12] MEDS: DIPYRIDAMOLE 75 MG TABLET PO SCH (10:06)
[2022-08-12] MEDS: ENOXAPARIN NA (PORCINE) 30 MG/0.3 ML DISP.SYRIN SQ SCH (10:06)
[2022-08-12] MEDS: TAMSULOSIN HCL 0.4 MG CAP PO SCH (10:06)
[2022-08-12] MEDS: DRONABINOL 2.5 MG CAPSULE PO SCH ×2 (10:06→18:35)
[2022-08-12] MEDS: FINASTERIDE 5 MG TABLET (FP) PO SCH (10:06)
[2022-08-12] MEDS: MEMANTINE HCL 5 MG TABLET (UD) PO SCH (10:06)
[2022-08-12] MEDS: ATORVASTATIN CA 20 MG TABLET (FP) PO SCH (21:16)
[2022-08-12] MEDS: DONEPEZIL HCL 10 MG TABLET (FP) PO SCH (21:16)
[2022-08-12] MEDS: MIRTAZAPINE 15 MG TABLET (FP) PO SCH (21:16)
[2022-08-13] MEDS: DRONABINOL 2.5 MG CAPSULE PO SCH (08:20)
[2022-08-13] MEDS: TAMSULOSIN HCL 0.4 MG CAP PO SCH (08:35)
[2022-08-13] MEDS: ENOXAPARIN NA (PORCINE) 30 MG/0.3 ML DISP.SYRIN SQ SCH (09:41)
[2022-08-13] MEDS: MEMANTINE HCL 5 MG TABLET (UD) PO SCH (09:41)
[2022-08-13] MEDS: DIPYRIDAMOLE 75 MG TABLET PO SCH (09:41)
[2022-08-13] MEDS: FINASTERIDE 5 MG TABLET (FP) PO SCH (09:41)
[2022-08-13] MEDS: DEXTROSE 5%-NORMAL SALINE 1,000 ML IV SCH (09:42)
[2022-08-13] MEDS: SENNOSIDES 8.6MG TABLET (FP) PO SCH (22:22)
[2022-08-13] MEDS: ATORVASTATIN CA 20 MG TABLET (FP) PO SCH (22:22)
[2022-08-13] MEDS: MIRTAZAPINE 15 MG TABLET (FP) PO SCH (22:23)
[2022-08-13] MEDS: DONEPEZIL HCL 10 MG TABLET (FP) PO SCH (22:23)
[2022-08-14] MEDS: DRONABINOL 2.5 MG CAPSULE PO SCH ×3 (06:04→17:13)
[2022-08-14] MEDS: SENNOSIDES 8.6MG TABLET (FP) PO SCH ×2 (06:05→21:53)
[2022-08-14] MEDS: ATORVASTATIN CA 20 MG TABLET (FP) PO SCH ×2 (06:06→21:53)
[2022-08-14] MEDS: MIRTAZAPINE 15 MG TABLET (FP) PO SCH ×2 (06:06→21:52)
[2022-08-14] MEDS: DONEPEZIL HCL 10 MG TABLET (FP) PO SCH ×2 (06:06→21:52)
[2022-08-14] MEDS: TAMSULOSIN HCL 0.4 MG CAP PO SCH (08:45)
[2022-08-14] MEDS: DEXTROSE 5%-NORMAL SALINE 1,000 ML IV SCH ×2 (08:48→08:49)
[2022-08-14] MEDS: POLYETHYLENE GLYCOL (HEALTHYLAX) 3350 17 GM PACKET PO SCH ×3 (08:48→12:01)
[2022-08-14 09:03] LABS: BILIRUBIN,TOTAL 0.5 mg/dl (0.2-1); CALCIUM 7.9 mg/dl (8.5-10); CREATININE 0.8 mg/dl (0.55-1.3); MAGNESIUM 1.6 mg/dL (1.8-2.4); PHOSPHOROUS 2.4 mg/dl (2.5-4.9); POTASSIUM 3.2 mmol/L (3.5-5.1); TOT PROT 5.2 g/dl (6.4-8.2)
[2022-08-14 09:15] LABS: BASO % 0.2 % (0-2.0); EOS % 0.2 % (0-4.5); HEMATOCRIT 23.9 % (35.4-49); LYMPH % 38.1 % (8-40); MCH 28.2 pg (25.7-33.7); MCHC 33.4 g/dl (32.0-35.9); MEAN CELL VOLUME 84.6 fl (80-96); MEAN PLT VOLUME 8.1 fl (7.5-11.1); MONO % 12.9 % (3.8-10.2); NEUT % 48.6 % (42.8-82.8); PLATELET COUNT 266 10^3/uL (134-434); RBC 2.83 M/mm3 (4.00-5.60); RDW 15.2 % (11.9-15.9); WHITE BLOOD COUNT 3.2 K/mm3 (4.0-10.0)
[2022-08-14] MEDS ORDERED: MAGNESIUM SULF 50% (8.12 MEQ/2 ML-1 GM VIAL) IVPB ONE (09:30)
[2022-08-14] MEDS ORDERED: POTASSIUM PHOSPHATE 15 MM in SODIUM CHLORIDE 250 ML IVPB ONE (10:00)
[2022-08-14] MEDS: ENOXAPARIN NA (PORCINE) 30 MG/0.3 ML DISP.SYRIN SQ SCH (10:14)
[2022-08-14] MEDS: MEMANTINE HCL 5 MG TABLET (UD) PO SCH ×2 (10:21→11:54)
[2022-08-14] MEDS: DIPYRIDAMOLE 75 MG TABLET PO SCH ×2 (10:22→11:53)
[2022-08-14] MEDS: FINASTERIDE 5 MG TABLET (FP) PO SCH ×2 (10:22→11:54)
[2022-08-14] MEDS: DOCUSATE SODIUM 100 MG CAPSULE (FP) PO SCH (23:07)
[2022-08-15 08:49] LABS: CALCIUM 8.1 mg/dl (8.5-10); CREATININE 0.7 mg/dl (0.55-1.3); MAGNESIUM 2.1 mg/dL (1.8-2.4); PHOSPHOROUS 3.4 mg/dl (2.5-4.9)
[2022-08-15 09:33] LABS: BASO % 0.5 % (0-2.0); EOS % 0.2 % (0-4.5); HEMATOCRIT 27.9 % (35.4-49); HEMOGLOBIN 9.2 GM/dL (11.7-16.9); LYMPH % 29.7 % (8-40); MCH 27.6 pg (25.7-33.7); MCHC 32.8 g/dl (32.0-35.9); MEAN CELL VOLUME 84.3 fl (80-96); MEAN PLT VOLUME 7.6 fl (7.5-11.1); MONO % 11.4 % (3.8-10.2); NEUT % 58.2 % (42.8-82.8); PLATELET COUNT 349 10^3/uL (134-434); RBC 3.31 M/mm3 (4.00-5.60); RDW 15.1 % (11.9-15.9); WHITE BLOOD COUNT 3.8 K/mm3 (4.0-10.0)
[2022-08-15] MEDS: DRONABINOL 2.5 MG CAPSULE PO SCH ×2 (11:25→17:54)
[2022-08-15] MEDS: FINASTERIDE 5 MG TABLET (FP) PO SCH (11:25)
[2022-08-15] MEDS: DOCUSATE SODIUM 100 MG CAPSULE (FP) PO SCH ×2 (11:26→21:14)
[2022-08-15] MEDS: TAMSULOSIN HCL 0.4 MG CAP PO SCH (11:27)
[2022-08-15] MEDS: ENOXAPARIN NA (PORCINE) 30 MG/0.3 ML DISP.SYRIN SQ SCH (11:27)
[2022-08-15] MEDS: MEMANTINE HCL 5 MG TABLET (UD) PO SCH (11:28)
[2022-08-15] MEDS: DIPYRIDAMOLE 75 MG TABLET PO SCH (11:36)
[2022-08-15] MEDS: POLYETHYLENE GLYCOL (HEALTHYLAX) 3350 17 GM PACKET PO SCH (11:36)
[2022-08-15] MEDS: MIRTAZAPINE 15 MG TABLET (FP) PO SCH (21:14)
[2022-08-15] MEDS: ATORVASTATIN CA 20 MG TABLET (FP) PO SCH (21:14)
[2022-08-15] MEDS: SENNOSIDES 8.6MG TABLET (FP) PO SCH (21:14)
[2022-08-15] MEDS: DONEPEZIL HCL 10 MG TABLET (FP) PO SCH (21:14)
[2022-08-16] MEDS: POLYETHYLENE GLYCOL (HEALTHYLAX) 3350 17 GM PACKET PO SCH ×2 (09:58→11:31)
[2022-08-16] MEDS: TAMSULOSIN HCL 0.4 MG CAP PO SCH ×2 (09:58→11:30)
[2022-08-16] MEDS: DOCUSATE SODIUM 100 MG CAPSULE (FP) PO SCH ×4 (09:58→21:19)
[2022-08-16] MEDS: MEMANTINE HCL 5 MG TABLET (UD) PO SCH ×2 (09:59→11:26)
[2022-08-16] MEDS: ENOXAPARIN NA (PORCINE) 30 MG/0.3 ML DISP.SYRIN SQ SCH (09:59)
[2022-08-16] MEDS: DIPYRIDAMOLE 75 MG TABLET PO SCH ×2 (09:59→11:30)
[2022-08-16] MEDS: FINASTERIDE 5 MG TABLET (FP) PO SCH ×2 (09:59→11:31)
[2022-08-16] MEDS: DRONABINOL 2.5 MG CAPSULE PO SCH ×2 (11:29→18:54)
[2022-08-16] MEDS: POTASSIUM CHLORIDE 10 MEQ in AMINO ACIDS 4.25%/D5W 1,000 ML IV SCH (12:00)
[2022-08-16] MEDS: DONEPEZIL HCL 10 MG TABLET (FP) PO SCH ×2 (21:16→21:20)
[2022-08-16] MEDS: MIRTAZAPINE 15 MG TABLET (FP) PO SCH ×2 (21:17→21:20)
[2022-08-16] MEDS: SENNOSIDES 8.6MG TABLET (FP) PO SCH ×2 (21:17→21:21)
[2022-08-16] MEDS: ATORVASTATIN CA 20 MG TABLET (FP) PO SCH ×2 (21:17→21:20)
[2022-08-17] MEDS: DRONABINOL 2.5 MG CAPSULE PO SCH ×2 (08:22→19:23)
[2022-08-17] MEDS: POLYETHYLENE GLYCOL (HEALTHYLAX) 3350 17 GM PACKET PO SCH (10:22)
[2022-08-17] MEDS: DOCUSATE SODIUM 100 MG CAPSULE (FP) PO SCH ×2 (10:22→21:12)
[2022-08-17] MEDS: DIPYRIDAMOLE 75 MG TABLET PO SCH (10:23)
[2022-08-17] MEDS: FINASTERIDE 5 MG TABLET (FP) PO SCH (10:23)
[2022-08-17] MEDS: MEMANTINE HCL 5 MG TABLET (UD) PO SCH (10:23)
[2022-08-17] MEDS: TAMSULOSIN HCL 0.4 MG CAP PO SCH (10:23)
[2022-08-17] MEDS: POTASSIUM CHLORIDE 10 MEQ in AMINO ACIDS 4.25%/D5W 1,000 ML IV SCH (11:45)
[2022-08-17] MEDS: MIRTAZAPINE 15 MG TABLET (FP) PO SCH (21:11)
[2022-08-17] MEDS: SENNOSIDES 8.6MG TABLET (FP) PO SCH (21:12)
[2022-08-17] MEDS: DONEPEZIL HCL 10 MG TABLET (FP) PO SCH (21:12)
[2022-08-17] MEDS: ATORVASTATIN CA 20 MG TABLET (FP) PO SCH (21:12)
[2022-08-18] MEDS: POTASSIUM CHLORIDE 10 MEQ in AMINO ACIDS 4.25%/D5W 1,000 ML IV SCH (04:00)
[2022-08-18] MEDS: DRONABINOL 2.5 MG CAPSULE PO SCH ×2 (12:03→18:45)
[2022-08-18] MEDS: DIPYRIDAMOLE 75 MG TABLET PO SCH (12:04)
[2022-08-18] MEDS: DOCUSATE SODIUM 100 MG CAPSULE (FP) PO SCH ×2 (12:04→21:25)
[2022-08-18] MEDS: POLYETHYLENE GLYCOL (HEALTHYLAX) 3350 17 GM PACKET PO SCH (12:04)
[2022-08-18] MEDS: TAMSULOSIN HCL 0.4 MG CAP PO SCH (12:04)
[2022-08-18] MEDS: FINASTERIDE 5 MG TABLET (FP) PO SCH (12:04)
[2022-08-18] MEDS: MEMANTINE HCL 5 MG TABLET (UD) PO SCH (12:11)
[2022-08-18] MEDS: ENOXAPARIN NA (PORCINE) 40 MG/0.4 ML DISP.SYRIN SQ SCH (15:20)
[2022-08-18] MEDS: AMINO ACIDS 4.25%/D5W 1,000 ML IV SCH (18:45)
[2022-08-18] MEDS: MIRTAZAPINE 15 MG TABLET (FP) PO SCH (21:24)
[2022-08-18] MEDS: SENNOSIDES 8.6MG TABLET (FP) PO SCH (21:25)
[2022-08-18] MEDS: ATORVASTATIN CA 20 MG TABLET (FP) PO SCH (21:25)
[2022-08-19] MEDS: DIPYRIDAMOLE 75 MG TABLET PO SCH (12:19)
[2022-08-19] MEDS: DOCUSATE SODIUM 100 MG CAPSULE (FP) PO SCH ×2 (12:20→21:32)
[2022-08-19] MEDS: DRONABINOL 2.5 MG CAPSULE PO SCH (12:20)
[2022-08-19] MEDS: ENOXAPARIN NA (PORCINE) 40 MG/0.4 ML DISP.SYRIN SQ SCH (12:20)
[2022-08-19] MEDS: TAMSULOSIN HCL 0.4 MG CAP PO SCH (12:20)
[2022-08-19] MEDS: FINASTERIDE 5 MG TABLET (FP) PO SCH (12:20)
[2022-08-19] MEDS: POLYETHYLENE GLYCOL (HEALTHYLAX) 3350 17 GM PACKET PO SCH (12:20)
[2022-08-19] MEDS: SENNOSIDES 8.6MG TABLET (FP) PO SCH (21:32)
[2022-08-19] MEDS: ATORVASTATIN CA 20 MG TABLET (FP) PO SCH (21:32)
[2022-08-19] MEDS: MIRTAZAPINE 15 MG TABLET (FP) PO SCH (21:32)
[2022-08-19] MEDS: AMINO ACIDS 4.25%/D5W 1,000 ML IV SCH (21:33)
[2022-08-20] MEDS: DRONABINOL 2.5 MG CAPSULE PO SCH ×3 (11:12→18:06)
[2022-08-20] MEDS: FINASTERIDE 5 MG TABLET (FP) PO SCH (12:05)
[2022-08-20] MEDS: TAMSULOSIN HCL 0.4 MG CAP PO SCH (12:05)
[2022-08-20] MEDS: DIPYRIDAMOLE 75 MG TABLET PO SCH (12:05)
[2022-08-20] MEDS: POLYETHYLENE GLYCOL (HEALTHYLAX) 3350 17 GM PACKET PO SCH (12:05)
[2022-08-20] MEDS: DOCUSATE SODIUM 100 MG CAPSULE (FP) PO SCH ×2 (12:05→21:24)
[2022-08-20] MEDS: ENOXAPARIN NA (PORCINE) 40 MG/0.4 ML DISP.SYRIN SQ SCH (12:06)
[2022-08-20] MEDS: AMINO ACIDS 4.25%/D5W 1,000 ML IV SCH (18:15)
[2022-08-20] MEDS: MIRTAZAPINE 15 MG TABLET (FP) PO SCH (21:24)
[2022-08-20] MEDS: SENNOSIDES 8.6MG TABLET (FP) PO SCH (21:24)
[2022-08-20] MEDS: ATORVASTATIN CA 20 MG TABLET (FP) PO SCH (21:24)
[2022-08-21] MEDS: DOCUSATE SODIUM 100 MG CAPSULE (FP) PO SCH ×2 (10:11→21:38)
[2022-08-21] MEDS: DIPYRIDAMOLE 75 MG TABLET PO SCH (10:11)
[2022-08-21] MEDS: POLYETHYLENE GLYCOL (HEALTHYLAX) 3350 17 GM PACKET PO SCH (10:11)
[2022-08-21] MEDS: FINASTERIDE 5 MG TABLET (FP) PO SCH (10:11)
[2022-08-21] MEDS: DRONABINOL 2.5 MG CAPSULE PO SCH ×2 (10:11→18:28)
[2022-08-21] MEDS: TAMSULOSIN HCL 0.4 MG CAP PO SCH (10:11)
[2022-08-21] MEDS: ENOXAPARIN NA (PORCINE) 40 MG/0.4 ML DISP.SYRIN SQ SCH (10:11)
[2022-08-21 20:07] VITALS: RESP 18
[2022-08-21] MEDS: ATORVASTATIN CA 20 MG TABLET (FP) PO SCH (21:38)
[2022-08-21] MEDS: MIRTAZAPINE 15 MG TABLET (FP) PO SCH (21:38)
[2022-08-21] MEDS: SENNOSIDES 8.6MG TABLET (FP) PO SCH (21:38)
[2022-08-22 08:25] VITALS: BP 105/60; PULSE 86; TEMP 98.1
== END 2022-08-22 08:25 | DRG 56 ==
LOC: FER 17:25 → UNDOADMIN 21:51 → FM/S 21:51
PROVIDERS: ADMIT Internal Medicine; ATTEND Internal Medicine
DX: G30.9 Alzheimer's disease, unspecified (principal); E43 Unspecified severe protein-calorie malnutrition; Z68.1 Body mass index [BMI] 19.9 or less, adult; I69.354 Hemiplegia and hemiparesis following cerebral infarction affecting left non-dominant side; I24.8 Other forms of acute ischemic heart disease; R64 Cachexia; R62.7 Adult failure to thrive; N40.0 Benign prostatic hyperplasia without lower urinary tract symptoms; E11.9 Type 2 diabetes mellitus without complications; E78.5 Hyperlipidemia, unspecified; K44.9 Diaphragmatic hernia without obstruction or gangrene; F02.80 Dementia in other diseases classified elsewhere, unspecified severity, without behavioral disturbance, psychotic disturbance, mood disturbance, and anxiety; E86.0 Dehydration; I10 Essential (primary) hypertension; R13.19 Other dysphagia; R33.8 Other retention of urine; D64.9 Anemia, unspecified; E86.1 Hypovolemia
CPT/HCPCS: 0241U-QW; 36415; 70450-TC; 71045-TC-FY; 80048; 80053; 81003; 81015; 82728; 82803; 83540; 83550; 83605; 83735; 84100; 84443; 84484; 85025; 85027; 85610; 85730; 86850; 86900; 86901; 87040; 87086; 87186; 93005; 97161-GP; 99285-25; C9803-CS; U0003; U0005